=== PATIENT | male | born 1960 | race Caucasian/White ===

== ENCOUNTER 2023-04-23 16:37 | Inpatient (IN) | payer MEDICARE, SELFPAY ==
[2023-04-23] VITALS (8 sets, daily range): BP systolic 130–159; BP diastolic 72–89; PULSE 95–108; RESP 16–18; TEMP 37–38.9; O2SAT 92–99; BMI 31.0
--- NOTE | 2023-04-23 17:19 | XRR_ITS ---
PROCEDURE INFORMATION: Exam: XR Chest Exam date and time: 04/23/2023 7:06 PM Age: 63 years old Clinical indication: Shortness of breath; Additional info: SOB TECHNIQUE: Imaging protocol: Radiologic exam of the chest. Views: 1 view. COMPARISON: No relevant prior studies available. FINDINGS: Tubes, catheters and devices: Overlying monitor leads are seen. Lungs: Unremarkable. No consolidation. Pleural spaces: Unremarkable. No pleural effusion. No pneumothorax. Heart/Mediastinum: Unremarkable. No cardiomegaly. Bones/joints: Visualized osseous structures show no acute abnormality. XR/XR chest 1V portable [id number] IMPRESSION: Single-view chest is without acute cardiopulmonary abnormality.
--- NOTE | 2023-04-23 17:19 | CTR_ITS ---
PROCEDURE INFORMATION: Exam: CT Right Lower Extremity With Contrast, Foot Exam date and time: 04/23/2023 9:46 PM Age: 63 years old Clinical indication: Cellulitis and swelling, leg or foot; Right; Prior surgery; Surgery date: Post-operative (0-2 days); Surgery type: Incision and drainage perfomred to plantar presiding steward earlier today. Patient HX: Diffuse redness and swelling to RT foot. History of diabetes. Amputation scheduled for tomorrow. ; Additional info: Diabetic foot, ulcer, abscess TECHNIQUE: Imaging protocol: CT of the right lower extremity with intravenous contrast was performed. Exam focused on the foot. Radiation optimization: All CT scans at this facility use at least one of these dose optimization techniques: automated exposure control; mA and/or kV adjustment per patient size (includes targeted exams where dose is matched to clinical indication); or iterative reconstruction. Contrast material: OMNI 350; Contrast volume: 100 ml; Contrast route: INTRAVENOUS (IV); REPORTING DATA: Count of CT and Cardiac NM exams in prior 12 months: This patient has received 0 known CTs and 0 known cardiac nuclear medicine studies in the 12 months prior to the current study. COMPARISON: No relevant prior studies available. RADIATION DOSE METRICS: Total DLP (mGy-cm): 140.75 FINDINGS: Bones/joints: There are no fractures or dislocations noted. Soft tissues: There is diffuse soft tissue edema noted. There is extensive amount of air noted within the soft tissues suggestive of gas gangrene. There is a diffuse amount of air in the soft tissues both on the dorsum and the plantar surfaces. Other findings: There is presumed dressing below the great toe. CT/CT foot RT w con [id number] IMPRESSION: Extensive amount of air in the soft tissues indicative of gas gangrene. No fractures are noted.
[2023-04-23 17:27] LABS: Glucose Point of Care 343 mg/dL (70-110)
--- NOTE | 2023-04-23 17:28 | P.HP_ITS ---
Providers/Chief Complaint Admitting Physician: Artemio Joy MD Primary Care Provider: Carson Lopez Chief Complaint: hospitalization History of Present Illness Sebas Junior is a 63 year old male Review of Systems Const: Reports: fever(s) and chills Eyes: Denies: change in vision ENMT: Denies: throat pain Card: Denies: chest pain or palpitations Resp: Denies: dyspnea GI: Denies: abdominal pain or nausea : Denies: flank pain or difficulty urinating Musc: Denies: neck pain or back pain Skin/Breast: Reports: rash, pruritus and erythema Neuro: Denies: headache(s) Psych: Reports: anxiety Endo: Reports: polyuria and polydipsia Roshan/Lymph: Denies: easy bruising Medications/Allergies Allergies Allergy/AdvReac Type Severity Reaction Status Date / Time No Known Drug Allergies Allergy Unknown Unknown Verified 04/23/23 15:43 PFSH Acute PFSH: Medical History (Updated 04/23/23 @ 17:33 by Artemio Joy MD) History of anxiety History of diabetic neuropathy History of type 2 diabetes mellitus Surgical History (Updated 04/23/23 @ 17:30 by Artemio Joy MD) History of kidney surgery Family History (Updated 04/23/23 @ 17:31 by Artemio Joy MD) Mother CAD (coronary artery disease) Father Lung disease Social History (Updated 04/23/23 @ 17:31 by Artemio Joy MD) Smoking and tobacco status: current every day smoker Alcohol intake: current Alcohol intake frequency: holidays/special occasions only Substance/Drug Use: never Physical Exam Const: COMMON NORMALS: no acute distress and patient oriented x3 GENERAL APPEARANCE: cooperative, well kempt and well developed HENMT: COMMON NORMALS: normocephalic, Normal external nose present and oropharynx normal HEAD & SCALP: normocephalic FACE & SINUS: normal facial exam Eye: COMMON NORMALS: Equal, round and reactive pupils present, EOMs intact bi laterally, conjunctivae normal and no scleral icterus CONJUNCTIVA: Yes conjunctivae normal PUPIL: Yes Equal, round and reactive pupils present Neck/C-Spine: COMMON NORMALS: full ROM, no lymphadenopathy, no JVD, Thyroid normal and No carotid bruits THYROID: Thyroid normal Lymph: LYMPHATIC: no lymphadenopathy noted Chest: COMMONS NORMALS: normal inspection of the chest Resp: COMMON NORMALS: normal respiratory effort, No retractions, No use of accessory muscles and clear to auscultation bilaterally AUSCULTATION: clear to auscultation bilaterally Cardio: COMMON NORMALS: regular rate, regular rhythm, S1 normal heart sound present, S2 normal heart sound present, No murmurs present (Cardio) and Peripheral pulses 2+ throughout RATE: regular rate RHYTHM: regular rhythm HEART SOUNDS: S1 normal heart sound present and S2 normal heart sound present PERIPHERAL PULSES: Peripheral pulses 2+ throughout GI: COMMON NORMALS: Normal to inspection, nondistended, normoactive bowel sounds present, Soft to palpation and non-tender PALPATION: Yes Soft to palpation : COMMON NORMALS: Yes no CVA tenderness BLADDER/KIDNEY EXAM: Yes no CVA tenderness Back/Pelvis: COMMON NORMALS: no CVA tenderness Extremity: COMMON NORMALS: no calf tenderness NARRATIVE EXTREMITY EXAM: Right lower extremity swelling, erythema, on the entire right foot, extending up the right ankle, to the right mid ankle First digit, with diabetic ulcer, on the posterior surface, with bone present Second digit and third digit, with a bluish hue, Neuro: COMMON NORMALS: patient oriented x3, CN's II-XII intact bilaterally, moves all extremities, no focal motor deficits and no sensory deficits noted Psych: COMMON NORMALS: mental status grossly normal, Normal thought process present, cooperative and speech normal APPEARANCE: Yes well kempt SPEECH: Yes normal speech THOUGHT PROCESS: Normal thought process present Skin: COMMON NORMALS: turgor normal and no jaundice GENERAL SKIN EXAM: turgor normal A&P Assessment and plan (1) Diabetic ulcer of right foot: (2) Cellulitis of right foot: (3) Smoker: Plan Right foot diabetic ulcer, with cellulitis Plan -Consulted Dr. Smyth -Will keep n.p.o. over midnight for possible surgical intervention -Broad-spectrum antibiotic therapy vancomycin, Zosyn -CT right lower extremity -venous ultrasound for DVT -Pro-Shiv, CRP, ESR -Blood cultures -CBC, CMP, lactic acid, troponin series, chest x-ray -A1c, lipid panel, TSH -Low-dose sliding scale -Morphine for pain control -Venous ultrasound for DVT -Full code -Lovenox for DVT prophylaxis Spoke to patient, spoke to at bedside, spoke to nursing staff, spoke to Dr. Smyth, workup as above Attestations Medical Necessity Statement*: Patient requires hospitalization, inpatient, greater than 2 midnights, for right foot diabetic ulcer, cellulitis of right foot, Diagnoses Diabetic ulcer of right foot E11.621; L97.519 Cellulitis of right foot L03.115 Smoker F17.200
--- NOTE | 2023-04-23 17:32 | USCV_ITS ---
Sebas Junior Age: 63 Gender: M : 1960 Exam Date: 04/23/2023 20:09 Ordering Phys: Artemio Joy MD Technologist: [place]am Location[place] [facility] [place]ication: Bilateral LE edema R>L. No history of DVT per patient. open sores RT foot. possible gangrene. HISTORY: Bilateral LE edema R>L. No history of DVT per patient. open sores RT foot. possible gangrene. PROCEDURES: Venous duplex imaging was performed in bilateral lower extremities. The following venous structures were evaluated: common femoral vein, profunda vein, proximal portion of the greater saphenous vein, superficial femoral vein, and the popliteal vein. In addition, the posterior tibial and peroneal veins were evaluated. Serial compression, augmentation maneuvers, and spectral Doppler flow evaluation were performed, which were normal. Bilaterally, the common femoral, superficial femoral, profunda femoral, popliteal, posterior tibial, greater saphenous veins, and the peroneal veins were identified and interrogated in the standard fashion. These veins were found to be easily compressible with spontaneous blood flow. No evidence of thrombus noted. CONCLUSIONS No evidence of right lower extremity DVT. No evidence of left lower extremity DVT. Atif Hadley MD (Electronically Signed) Final Date: 24 April 2023 08:33 S
--- NOTE | 2023-04-23 17:40 | ECG_ITS ---
[facility] Test Date: 2023-04-23 Pat Name: Sebas Junior Department: Room: 254 Gender: Male Residence Director: : 1960 Requested By: Artemio Joy Order Number: [id number] Mackenzie MD: Wm Rodriges M.D. Measurements Intervals [place] Rate: 92 P: 59 HI: 155 QRS: 26 QRSD: 109 T: 71 QT: 355 QTc: 439 Interpretive Statements SINUS RHYTHM WITH SINUS ARRHYTHMIA NONSPECIFIC T-WAVE ABNORMALITY No previous ECG available for comparison Electronically Signed On 04-24-2023 9:29:52 CDT by Wm Rodriges M.D. [id number]
--- NOTE | 2023-04-23 18:34 | P.CONIM_ITS ---
Providers/Reason For Consult Consulting Physician/Specialty*: Dr. Dionisio Smyth, D.P.M./podiatry Reason for Consult*: Right foot diabetic foot infection Attending Physician: Artemio Joy MD Primary Care Provider: Carson Lopez History of Present Illness History of Present Illness Sebas Junior is a 63 year old male with history significant for type 2 diabetes who was direct admitted from wound care today 04/23/2023 for worsening right foot diabetic foot infection. In discussing with the patient the patient's the patient has a history of diabetic foot ulcers to bilateral lower extremities. The last time that the patient had a severe infection was to the left foot. It was managed by a physician in [place]. It has since healed. Patient's states that the wound has been present on his right foot for a matter of months. It has been worsening over the course of the past week. She encouraged him to go to his primary care provider which he was reluctant to do. As the infection worsened he was finally convinced to go to his primary care provider who referred him to wound care. Upon evaluation in wound care the patient was sent to [facility] for direct admission for worsening diabetic foot infection. Patient states that he has had feelings of general malaise over the course the past week. Patient states that after told to come to the hospital from wound care that he ate pizza rolls and hard candy. Podiatry was consulted to evaluate patient and provide further recommendations for treatment Review of Systems General: Reports: 10 or more systems reviewed and unremarkable except in HPI and below Const: Denies: fever(s), chills, body aches or change in appetite Eyes: Denies: change in vision or blurry vision Card: Denies: chest pain, palpitations or irregular heart rhythm Resp: Denies: dyspnea GI: Denies: abdominal pain, nausea, vomiting or diarrhea Musc: Reports: joint stiffness Skin/Breast: Reports: non-healing lesions and lesions Neuro: Reports: numbness in extremities Medications/Allergies Allergies Allergy/AdvReac Type Severity Reaction Status Date / Time No Known Drug Allergies Allergy Unknown Unknown Verified 04/23/23 15:43 PFSH Acute PFSH: Medical History (Updated 04/23/23 @ 18:47 by Dionisio Smyth DPM) History of anxiety History of diabetic neuropathy History of type 2 diabetes mellitus Surgical History (Updated 04/23/23 @ 17:30 by Artemio Joy MD) History of kidney surgery Family History (Updated 04/23/23 @ 17:31 by Artemio Joy MD) Mother CAD (coronary artery disease) Father Lung disease Social History (Updated 04/23/23 @ 17:31 by Artemio Joy MD) Smoking and tobacco status: current every day smoker Alcohol intake: current Alcohol intake frequency: holidays/special occasions only Substance/Drug Use: never Vitals/I&O/Wt Last Vital Signs Temp 98.6 F 04/23/23 17:24 Pulse 95 04/23/23 18:09 Resp 18 04/23/23 17:24 BP 144/75 04/23/23 17:24 Pulse Ox 93 04/23/23 18:09 O2 Del Method Room Air 04/23/23 18:09 Weight last 48 hrs Weight 229 lb Physical Exam Narrative: BELOW IS A FOCUSED LOWER EXTREMITY EXAM GENERAL: A&O x 3 VASCULAR: DP/PT pulses palpable 2/4 with CFT intact, <3seconds to distal digits DERMATOLOGICAL: Full-thickness ulceration to right first interdigital space with necrosis and active purulence, malodorous. Tracks proximally in the first inter metatarsal space. Plantar right foot shows area of fluctuance and abscess underlying. Erythema is retained to the midfoot. No proximal streaking up the leg. First, second and third digits are dusky in appearance. Discoloration to the lateral aspect of foot along fifth metatarsal neck likely due to underlying infection. Clinical images below. MUSCULOSKELETAL: Tenderness with palpation of right plantar foot NEUROLOGICAL: Neurological sensation to the affected foot and ankle is present through L4-S1 dermatomes with no hyper/hypoesthesias, negative Tinel or Valleix's sign A&P Assessment and plan (1) Diabetic ulcer of right foot: (2) Cellulitis of right foot: (3) History of type 2 diabetes mellitus: (4) Abscess of right foot: (5) Gangrene of right foot: Plan LABS AND CLINICAL INFO: Labs pending T98.6 HR 95 RR 18 ABx: Vanco/Zosyn Wound culture: Pending Blood culture: Pending CT scan: Pending PLAN: -N.p.o. at midnight for procedure tomorrow 04/24/2023. Plan for right t ransmetatarsal amputation -Lengthy discussion was had with patient patient's in regards to right foot infection and the severity of the infection. I discussed that intraoperatively we will determine the patient's prognosis. I discussed that the severity of the infection may ultimately lead to more proximal amputation. Patient and patient's verbalized understanding to this. -To stabilize right foot infection patient underwent bedside incision and drainage this evening (04/23/2023). See general procedure note for details. Cultures were obtained -Monitor and trend labs -Continue empiric antibiotic therapy until cultures result -Intraoperative findings will determine p.o. versus IV antibiotic therapy and the extent of home health care that patient will need -Discharge plan: To be determined -Podiatry will round on patient and continue to provide recommendations during this admission. Coding Level of Care Code Acute Code for [facility] Diagnoses Diabetic ulcer of right foot E11.621; L97.519 Cellulitis of right foot L03.115 History of type 2 diabetes mellitus Z86.39 Abscess of right foot L02.611 Gangrene of right foot I96
--- NOTE | 2023-04-23 18:50 | PM.ACPR ---
Procedure/Consent Consent: Consent for Procedure: Consent obtained from patient, Consent obtained from other (indicate) (Patient's signed for patient as patient is legally blind.), Emergency procedure, Risks & Benefits reviewed and Agrees to proceed with procedure Additional Consent Information: Patient was consented for right foot incision and drainage for deep space abscess Procedure Narrative: PROCEDURE: Right foot incision and drainage below fascia CPT 58341 Location: Plantar right foot and medial longitudinal arch Local Anesthesia: 6 cc of 1% lidocaine plain Consent: Both written and verbal consent were obtained for right foot incision and drainage Sterile Prep: Chlorhexidine prep Details: Attention was directed to the plantar aspect of the right foot where a #15 blade was used to incise through skin, subcutaneous tissue and superficial fascia. Incision was carried down to the level of fascia. Upon incising this area and extravasation of purulence was noted to be coming from the area. This was milked until no further purulence was expressed. Cultures were taken at this point and sent to micro for ID and sensitivity. The incision site was then irrigated copiously with Betadine infused saline. The wound on the lateral aspect of the hallux and the first interdigital space was also irrigated with copious amounts of Betadine infused saline. The foot was then expressed further no remaining purulence remained. The incision site was then dressed with Betadine soaked 4 x 4 gauze, the wound was also dressed with Betadine soaked 4 x 4 gauze. Followed by dry 4 x 4 gauze, ABD pad x 2 Kerlix and Enrique bandage. Hemostasis: Manual compression Irrigation: Betadine infused saline Dressing: Betadine soaked 4 x 4 gauze, dry 4 x 4 gauze, ABD pad x 2, Kerlix and Enrique bandage Estimated Blood Loss: Less than 5 cc Offloading: Nonweightbearing Wound culture both aerobic and anaerobic taken. Plan will be for transmetatarsal amputation of right foot tomorrow 04/24/2023. Today's bedside procedure was performed in an attempt to prevent more proximal spread of infection.
[2023-04-23] MEDS: pantoprazole 40 mg SDV IVP (19:08)
[2023-04-23] MEDS: gabapentin 300 mg Capsule PO (19:15)
[2023-04-23] MEDS: enoxaparin 40 mg/0.4 mL Syringe SUBCUT (19:15)
[2023-04-23] MEDS: sodium chloride 0.9% 1,000 ML 75 ML IV (19:16)
[2023-04-23 19:35] LABS: Erythrocyte Sedimentation Rate 36 mm/hr (0-10)
[2023-04-23 19:47] LABS: Bilirubin Urine Neg (Negative); Blood Urine 2+ (Negative); Glucose Urine UA 4+ (Normal); Ketones Urine 2+ (Negative); Nitrate Urine Negative (Negative); Protein Urine Neg (Negative); Urine Appearance Clear (CLEAR); Urine Color Yellow (Yellow); pH Urine 5 (5-7)
[2023-04-23 19:48] LABS: Add Urine Microscopic? YES; Leukocyte Esterase Urine Negative (Negative); RBC Urine 0-4 /hpf (0-2); Urobilinogen Urine 1 mg/dL (Negative); WBC Urine 0-4 /hpf (0-5)
[2023-04-23 19:49] LABS: Add Urine Culture? No; Bacteria Urine TRACE /hpf; Squamous Epithelial Cell Urine 0-4 /hpf (0-5)
[2023-04-23 19:53] LABS: Hematocrit 40.7 % (42.0-52.0); Hemoglobin 13.7 g/dL (11.7-16.6); Mean Corpuscular HGB Conc 33.7 g/dL (30.0-36.0); Mean Corpuscular Hemoglobin 30.1 pg (28.0-34.0); Mean Corpuscular Volume 89.5 fl (80-94); Mean Platelet Volume 9.9 fL (7.4-10.4); Platelet Count 281 10^3/cmm (130-400); Red Blood Count 4.55 10^6/uL (4.1-5.3); Red Cell Distribution Width 12.5 % (12.1-15.1)
[2023-04-23 19:55] LABS: Lactic Sepsis W/Reflex 1.8 mmol/L (0.5-2.2); Slide Review Slide Review Perform
[2023-04-23 20:05] LABS: Absolute Neutrophil 15.4 10^3/cmm (1.4-6.5); Absolute Segmented Neutrophil 12.4 10/cmm (1.6-7.1); Eosinophils 0 %; Lymphocytes 7 %; Lymphocytes Absolute 1.3 10^3/cmm (1.2-3.4); Monocytes Absolute 2.3 10^3/cmm (0.1-0.6); Platelet Estimate Normal (Normal); Segmented Neutrophils 65 %; Total Cells Counted 100 (0-100); Troponin(5th) Baseline 7 ng/L (0-15)
[2023-04-23 20:06] LABS: Dohle Bodies 1+; Toxic Granulation 2+
[2023-04-23 20:11] LABS: Estmated Average Glucose 306; Hemoglobin A1C 12.3 % (4.0-6.0)
[2023-04-23 20:12] LABS: Lipase 34 U/L (13-60); NT Pro B Type Natriuretic Pept 276 pg/mL (0-125); Procalcitonin 0.71 ng/mL (0-0.5); Thyroid Stimulating Hormone 1.64 uIU/mL (0.27-4.20)
[2023-04-23 20:23] LABS: Alanine Aminotransferase 13 U/L (0-41); Albumin Level 2.7 g/dL (3.5-5.2); Alkaline Phosphatase 135 U/L (40-130); Anion Gap 22.3 (5-19); Aspartate Amino Transferase 19 U/L (0-40); Blood Urea Nitrogen 14 mg/dL (8-23); Calcium 9.6 mg/dL (8.5-10.5); Carbon Dioxide 19 mmol/L (22-29); Chloride 93 mmol/L (98-107); Chol HDL Ratio 5.06 mg/dL (1.0-5.00); Cholesterol 91 mg/dL (0-200); Globulin 3.3 g/dL (1.3-4.6); Glomerular Filtration Rate 113.9 mL/min (90-130); Glucose 130 mg/dL (65-115); HDL Cholesterol 18 mg/dL (60-100); LDL Cholesterol Calculated 48 mg/dL (50-129); LDL HDL Ratio 2.67 RATIO (0.00-3.22); Magnesium 2.1 mg/dL (1.7-2.3); Osmolality Calculated 272 mOsm/kg (285-295); Phosphorus 2.9 mg/dL (2.5-4.5); Potassium 4.3 mmol/L (3.5-5.1); Sodium 130 mmol/L (136-145); Total Bilirubin 0.3 mg/dL (0.15-1.2); Triglycerides 126 mg/dL (0-150)
[2023-04-23 20:37] LABS: C Reactive Protein 498.8 mg/L (0.0-4.9)
[2023-04-23] MEDS: vancomycin 2,000 MG/400 ML PIGGYBACK 200 MG IV (20:42)
--- NOTE | 2023-04-23 21:04 | ECG_ITS ---
[facility] Test Date: 2023-04-23 Pat Name: Sebas Junior Department: Room: 254 Gender: Male Tie Worker: : 1960 Requested By: Artemio Joy Order Number: [id number] Mackenzie MD: Wm Rodriges M.D. Measurements Intervals [place] Rate: 106 P: 37 CO: 128 QRS: 36 QRSD: 110 T: 60 QT: 312 QTc: 415 Interpretive Statements SINUS TACHYCARDIA NONSPECIFIC ST & T-WAVE ABNORMALITY Compared to ECG 04/23/2023 17:40:16 Sinus rhythm no longer present Sinus arrhythmia no longer present T-wave abnormality still present Electronically Signed On 04-24-2023 9:25:37 CDT by Wm Rodriges M.D. [id number]
[2023-04-23 21:31] LABS: Troponin 5 2HR 8.65 ng/L (0-15); Troponin 5 2HR Delta 1.65 ABS# (0-10)
[2023-04-23] MEDS: iohexol 350 mg/mL 500 mL Btl (per mL) IV (21:45)
--- NOTE | 2023-04-23 22:45 | PC.PHAR ---
Pharmacokinetic dosing service Date: 04/23/23 Time: 2244 Objective: Patient: Sebas Junior Floor: 254-2 Age: 63 yo Serum creatinine: 0.7 mg/dL Height: 72.0 Inches Weight (kg): 103.873 Diagnosis: Relevant medical/social history: Cultures and sensitivities: Other labs: Assessment: IBW (kg): 77.60 Dosing wt(kg): 103.873 Estimated Creatinine clearance (ml/min): 118.6 CRCL method: Cockcroft and Gault using ibw(default). Drug selected: Vancomycin Loading dose (mg): 0 Vd (liters): 93.5 (factor used: 0.9 L/kg) Dorian (hr-1): 0.103 Half life (hrs): 6.73 Recommended dose: 1750 mg Interval: 8 hrs Infusion time (hrs): 1.5 Predicted peak (mcg/mL): 30.9 Predicted trough (mcg/mL): 15.82 Total body weight is being used for vancomycin dosing. Renal function is stable [ ] /unstable [ ] Recommendations: Give Vancomycin 1750 mg q 8 hrs with an expected Cpeak of 30.9 mcg/ml and an expected Ctrough of 15.82 mcg/ml Renal dosing of other antibiotics (review renal dosing of other medications and list guidelines here): Thank you for the consult, will continue to follow. Signature: [facility]
[2023-04-23] MEDS: piperacillin-tazobactam 3.375 GM in sodium chloride 0.9% (plus) 50 ML IV (23:20)
--- NOTE | 2023-04-23 23:22 | ECG_ITS ---
[facility] Test Date: 2023-04-23 Pat Name: Sebas Junior Department: Room: 254 Gender: Male Workers Compensation Claims Analyst: : 1960 Requested By: Artemio Joy Order Number: [id number] Mackenzie MD: Wm Rodriges M.D. Measurements Intervals [place] Rate: 104 P: 37 [place]: 132 QRS: 30 QRSD: 107 T: 30 QT: 323 QTc: 425 Interpretive Statements SINUS TACHYCARDIA NONSPECIFIC T-WAVE ABNORMALITY Compared to ECG 04/23/2023 21:04:27 No significant changes Electronically Signed On 04-24-2023 9:29:02 CDT by Wm Rodriges M.D. [id number]
[2023-04-23] MEDS: acetaminophen 325 mg Tablet 650 MG PO (23:54)
[2023-04-23] MEDS: morphine 4 mg/mL SDV 1 mL 2 MG IVP (23:55)
[2023-04-24] VITALS (17 sets, daily range): BP systolic 96–168; BP diastolic 53–84; PULSE 70–100; RESP 16–18; TEMP 36.2–37.9; O2SAT 91–100
[2023-04-24 00:58] LABS: Basophils # 0.1 10^3/uL (0.0-0.1); Basophils % 0.5 %; Eosinophils % 0.2 %; Hematocrit 40.4 % (42.0-52.0); Hemoglobin 13.5 g/dL (11.7-16.6); Lymphocytes # 1.4 10^3/uL (0.8-4.8); Lymphocytes % 7.1 %; Mean Corpuscular HGB Conc 33.4 g/dL (30.0-36.0); Mean Corpuscular Hemoglobin 29.1 pg (28.0-34.0); Mean Corpuscular Volume 87.1 fl (80-94); Mean Platelet Volume 9.6 fL (7.4-10.4); Monocytes # 1.9 10^3/uL (0.2-0.9); Monocytes % 10.1 %; Neutrophils # 15.43 10^3/uL (1.8-7.7); Neutrophils % 80.3 %; Nucleated Red Blood Cells % 0 %; Platelet Count 289 10^3/cmm (130-400); Red Blood Count 4.64 10^6/uL (4.1-5.3); Red Cell Distribution Width 12.5 % (12.1-15.1); White Blood Count 19.2 10^3/uL (4.0-10.0)
[2023-04-24 01:20] LABS: Troponin 5 6HR 17.46 ng/L (0-15)
[2023-04-24 01:21] LABS: Alanine Aminotransferase 14 U/L (0-41); Albumin Level 2.4 g/dL (3.5-5.2); Alkaline Phosphatase 116 U/L (40-130); Anion Gap 22.5 (5-19); Aspartate Amino Transferase 13 U/L (0-40); Blood Urea Nitrogen 13 mg/dL (8-23); Calcium 9.2 mg/dL (8.5-10.5); Carbon Dioxide 17 mmol/L (22-29); Chloride 94 mmol/L (98-107); Globulin 4.1 g/dL (1.3-4.6); Glomerular Filtration Rate 113.9 mL/min (90-130); Glucose 104 mg/dL (65-115); Magnesium 1.8 mg/dL (1.7-2.3); Osmolality Calculated 270 mOsm/kg (285-295); Phosphorus 2.7 mg/dL (2.5-4.5); Potassium 3.5 mmol/L (3.5-5.1); Sodium 130 mmol/L (136-145); Total Bilirubin 0.3 mg/dL (0.15-1.2); Total Protein 6.5 g/dL (6.6-8.7)
[2023-04-24 01:27] LABS: Procalcitonin 0.66 ng/mL (0-0.5)
[2023-04-24 01:28] LABS: Troponin 5 6HR Delta 10.46 ng/L (0-12)
[2023-04-24 01:35] LABS: C Reactive Protein 399.3 mg/L (0.0-4.9)
[2023-04-24 01:38] LABS: Slide Review Slide Review Perform
[2023-04-24] MEDS: vancomycin 1,750 MG/350 ML PIGGYBACK 233.33 MG IV ×2 (04:55→20:57)
[2023-04-24] MEDS: piperacillin-tazobactam 3.375 GM in sodium chloride 0.9% (plus) 50 ML IV ×3 (06:19→23:20)
[2023-04-24 06:48] LABS: Glucose Point of Care 237 mg/dL (70-110)
--- NOTE | 2023-04-24 07:39 | P.PN_ITS ---
Subjective Subjective: Patient seen at bedside this morning. Spiking fevers overnight. Endorses general malaise and constitutional symptoms Vitals/I&O/Wt Last Vital Signs Temp 98.7 F 04/24/23 04:10 Pulse 87 04/24/23 05:21 Resp 16 04/24/23 04:10 BP 130/73 04/24/23 04:10 Pulse Ox 94 04/24/23 04:10 O2 Del Method Room Air 04/24/23 04:10 04/23/23 04/24/23 04/24/23 22:59 06:59 14:59 Intake Total 800 / 800 Output Total 300 / 300 775 / 1075 Balance -300 / -300 25 / -275 Weight last 48 hrs Weight 229 lb Physical Exam Narrative: BELOW IS A FOCUSED LOWER EXTREMITY EXAM GENERAL: A&O x 3 VASCULAR: DP/PT pulses palpable 2/4 with CFT intact, <3seconds to distal digits DERMATOLOGICAL: Full-thickness ulceration to right first interdigital space with necrosis and active purulence, malodorous. Tracks proximally in the first intermetatarsal space. Plantar right foot shows area of fluctuance and abscess underlying. Erythema is retained to the midfoot. No proximal streaking up the leg. First, second and third digits are dusky in appearance. Discoloration to the lateral aspect of foot along fifth metatarsal neck likely due to underlying infection. Clinical images below. MUSCULOSKELETAL: Tenderness with palpation of right plantar foot NEUROLOGICAL: Neurological sensation to the affected foot and ankle is present through L4-S1 dermatomes with no hyper/hypoesthesias, negative Tinel or Valleix's sign IMAGING: CT scan obtained last night 04/23/2023 showed diffuse soft tissue edema and subcutaneous emphysema up to the level of the ankle mortise and moving proximally. Data 04/24/23 00:50 04/24/23 00:50 Micro: Microbiology 04/23/23 18:50 Blood Culture - Preliminary Blood SPECIMEN COLLECTED 04/23/23 19:05 Blood Culture - Preliminary Blood SPECIMEN COLLECTED A&P Assessment and plan (1) Gas gangrene: (2) Gangrene of right foot: (3) Diabetic ulcer of right foot: (4) Cellulitis of right foot: (5) History of type 2 diabetes mellitus: (6) Abscess of right foot: Plan LABS AND CLINICAL INFO: WBC 19.0--> 19.2 CRP 498--> 399 ESR 36 Tmax 102.1 HR 104 RR 18 ABx: Vanco/Zosyn Wound culture: Pending Blood culture: Pending CT scan: Subcutaneous emphysema extending from right hallux through the dorsal plantar tissues of the foot to the level of the ankle mortise PLAN: -N.p.o. diet -Extent of infection of right lower extremity necessitates more proximal amputation. Given finding of gas gangrene, guillotine amputation recommended for source control. Recommendation made to hospitalist for general surgery consult for guillotine amputation. I also spoke with general surgeon on-call about the case and the necessity for source control amputation. -I discussed with patient and patient's at bedside this morning in regards to extent of infection and the need for more proximal amputation. All questions were answered. Patient verbalized understanding to the gravity of the situation. -In an attempt to stabilize right foot infection patient underwent bedside incision and drainage (04/23/2023). See general procedure note for details. Cultures were obtained -Monitor and trend labs -Continue empiric antibiotic therapy until cultures result -Discharge plan: To be determined -Podiatry will round on patient and continue to provide recommendations during this admission. Attestations Medical Necessity Statement*: Right foot diabetic foot infection with gas gangrene requiring below the knee amputation Coding Level of Care Code Acute Code for [facility] Diagnoses Gas gangrene A48.0 Gangrene of right foot I96 Diabetic ulcer of right foot E11.621; L97.519 Cellulitis of right foot L03.115 History of type 2 diabetes mellitus Z86.39 Abscess of right foot L02.611
[2023-04-24] MEDS: morphine 4 mg/mL SDV 1 mL 2 MG IVP (08:10)
[2023-04-24] MEDS: gabapentin 300 mg Capsule PO ×2 (08:30→17:36)
[2023-04-24 11:19] LABS: Glucose Point of Care 433 mg/dL (70-110)
[2023-04-24] MEDS: insulin lispro 100 unit/1 mL SUBCUT (11:27)
[2023-04-24 12:36] LABS: Glucose Point of Care 259 mg/dL (70-110)
[2023-04-24] MEDS: sodium chloride 0.9% 1,000 ML 30 ML IV (12:43)
--- NOTE | 2023-04-24 12:55 | PC.NURSE ---
Nerve block- assisted Dr. Ruggiero with a nerve block. pt tolerated without difficulty.
[2023-04-24] MEDS: insulin regular-human 10 UNIT in SYRINGE 1 EACH IVP (13:00)
--- NOTE | 2023-04-24 13:01 | P.ANESASSM_ITS ---
Pre-Anesthetic Assessment Height/Weight: Height 1.83 m Weight 103.873 kg Temp Pulse Resp BP Pulse Ox O2 Del Method 100.3 F H 92 18 147/66 92 Room Air 04/24/23 12:18 04/24/23 12:18 04/24/23 12:18 04/24/23 12:18 04/24/23 12:18 04/24/23 12:18 Operation Date: 04/24/23 12:20 Proposed Procedures p Amputation Transmetatarsal(Right) - Dionisio Smyth DPM Operation Date: 04/24/23 13:00 Proposed Procedures p BKA (Below Knee Amputation)(Right) - Britton Dave DO Familial anesthetic complications: None Was Beta Cherrie taken within 24 hours: N/A Was Clonidine taken within 24 hours: N/A Last intake: Intake Last Liquid Date 04/23/23 Last Liquid Time 12:00 Last Solid Date 04/23/23 Last Solid Time 12:00 Social No alcohol and No tobacco Exam alert, oriented x 3, clear to auscultation bilaterally and regular rate & rhythm Airway Mallampati: Class II Dentition: full Pulmonary None reported Metabolic Diabetes Mellitus Anesthetic Plan ASA status: 3 Anesthesia: General Risk of > 500 ml blood loss (7ml/kg in children): No Medications/Allergies Home Medications Medication Instructions Recorded Confirmed Last Taken Type cephalexin 500 mg capsule 500 mg PO Q8H 04/24/23 04/24/23 Unknown History empagliflozin 25 mg tablet 25 mg PO DAILY 04/24/23 04/24/23 Unknown History (Jardiance) mupirocin 2 % topical ointment 1 applic topical BID 04/24/23 04/24/23 Unknown History sulfamethoxazole 800 1 tab PO BID 04/24/23 04/24/23 Unknown History mg-trimethoprim 160 mg tablet tramadol 50 mg tablet 50 mg PO Q6H PRN Pain 04/24/23 04/24/23 Unknown History Allergies Allergy/AdvReac Type Severity Reaction Status Date / Time No Known Drug Allergies Allergy Unknown Unknown Verified 04/23/23 15:43 Current Medications Generic Name Dose Route Start Last Admin Trade Name Freq PRN Reason Stop Dose Admin Acetaminophen 650 mg 04/23/23 17:23 04/23/23 23:54 Acetaminophen 325 Mg Tablet PO 650 mg Q6H PRN Administration Mild/Mod Pain Or Temp >/= 101 Enoxaparin Sodium 40 mg 04/23/23 17:30 04/23/23 19:15 Enoxaparin 40 Mg/0.4 Ml Syringe SUBCUT 40 mg Q24H MILI Administration Gabapentin 300 mg 04/23/23 18:00 04/24/23 08:30 Gabapentin 300 Mg Capsule PO 300 mg BID MILI Administration Sodium Chloride 1,000 mls @ 75 mls/hr 04/23/23 17:30 04/23/23 19:16 Sodium Chloride 0.9% IV 75 mls/hr .[id number] MILI Administration Piperacillin Sod/Tazobactam 50 mls @ 12.5 mls/hr 04/23/23 22:00 04/24/23 06:19 Sod 3.375 gm/ Sodium Chloride IV 12.5 mls/hr Q8H MILI Administration Protocol Vancomycin/PEG/NADA/Lysine/Water 1,750 mg in 350 mls @ 233.333 mls/hr 04/24/23 05:00 04/24/23 06:23 Vancocin IV Infused Q8H MILI Infusion Sodium Chloride 1,000 mls @ 30 mls/hr 04/24/23 12:30 04/24/23 12:43 Sodium Chloride 0.9% IV 04/25/23 12:29 30 mls/hr .Q24H MILI Administration Insulin Human Lispro 0 unit 04/23/23 18:00 04/24/23 11:27 Insulin Lispro 100 Unit/1 Ml SUBCUT 14 unit TIDWM MILI Administration Protocol Morphine Sulfate 2 mg 04/23/23 17:23 04/24/23 08:10 Morphine 4 Mg/Ml Sdv 1 Ml IVP 2 mg Q4H PRN Administration SEVERE PAIN Pantoprazole Sodium 40 mg 04/23/23 17:30 04/23/23 19:08 Pantoprazole 40 Mg Sdv IVP 40 mg Q24H MILI Administration PFSH Anesthesia Medical History (Updated 04/24/23 @ 07:48 by Dionisio Smyth DPM) History of anxiety History of diabetic neuropathy History of type 2 diabetes mellitus Surgical History (Updated 04/23/23 @ 17:30 by Artemio Joy MD) History of kidney surgery Family History (Updated 04/23/23 @ 17:31 by Artemio Joy MD) Mother CAD (coronary artery disease) Father Lung disease Social History (Updated 04/23/23 @ 17:31 by Artemio Joy MD) Smoking and tobacco status: current every day smoker Alcohol intake: current Alcohol intake frequency: holidays/special occasions only Substance/Drug Use: never Data Anesthesia 04/24/23 00:50 04/24/23 00:50 Short CBC 04/23/23 04/24/23 Range/Units 18:50 00:50 WBC 19.0 H 19.2 H (4.0-10.0) 10^3/uL Hgb 13.7 13.5 (11.7-16.6) g/dL Hct 40.7 L 40.4 L (42.0-52.0) % MCV 89.5 87.1 (80-94) fl Plt Count 281 289 (130-400) 10^3/cmm Neut % (Auto) 80.3 % Neut # (Auto) 15.43 H (1.8-7.7) 10^3/uL BMP 04/23/23 04/24/23 18:50 00:50 Sodium 130 L 130 L Potassium 4.3 3.5 Chloride 93 L 94 L Carbon Dioxide 19 L 17 L BUN 14 13 Creatinine 0.7 0.7 Glucose 130 H 104 Calcium 9.6 9.2 Cardiac Enzymes 04/23/23 04/23/23 04/23/23 Range/Units 18:50 18:50 20:56 Troponin T Baseline 7 (0-15) ng/L Troponin T 120 Minute 8.65 (0-15) ng/L Delta Troponin T 1.65 (0-10) ABS# Troponin T Hi Sens 6Hr (0-15) ng/L Troponin T Hi Sens 6Hr Delta (0-12) ng/L NT-Pro-B Natriuret Pep 276 H (0-125) pg/mL 04/24/23 Range/Units 00:50 Troponin T Baseline (0-15) ng/L Troponin T 120 Minute (0-15) ng/L Delta Troponin T (0-10) ABS# Troponin T Hi Sens 6Hr 17.46 H (0-15) ng/L Troponin T Hi Sens 6Hr Delta 10.46 (0-12) ng/L NT-Pro-B Natriuret Pep (0-125) pg/mL Liver Function 04/23/23 04/24/23 Range/Units 18:50 00:50 Total Bilirubin 0.3 0.3 (0.15-1.2) mg/dL AST 19 13 (0-40) U/L ALT 13 14 (0-41) U/L Alkaline Phosphatase 135 H 116 (40-130) U/L Albumin 2.7 L 2.4 L (3.5-5.2) g/dL Urine 04/23/23 Range/Units 18:42 Urine Color Yellow (Yellow) Urine Appearance Clear (CLEAR) Urine pH 5 (5-7) Ur Specific [place] 1.010 (1.005-1.030) Urine Protein Neg (Negative) Urine Glucose (UA) 4+ H (Normal) Urine Ketones 2+ H (Negative) Urine Nitrate Negative (Negative) Urine Bilirubin Neg (Negative) Ur Leukocyte Esterase Negative (Negative) Urine RBC 0-4 H (0-2) /hpf Urine WBC 0-4 H (0-5) /hpf Coags 04/23/23 04/23/23 04/24/23 18:50 18:50 00:50 ESR 36 H C-Reactive Protein 498.8 H 399.3 H Microbiology 04/23/23 18:50 Blood Culture - Preliminary Blood SPECIMEN COLLECTED 04/23/23 19:05 Blood Culture - Preliminary Blood SPECIMEN COLLECTED Cardiac Studies: No Data to Display
--- NOTE | 2023-04-24 13:03 | ANES.PROC ---
Anesthesia Procedures Procedure/Date: 04/24/23 Nerve Block ^: Nerve Block 1: Main Anesthesia: general anesthesia Time Out Performed: Yes Consent: requested by attending/covering physician, from patient, from other, risks and benefits reviewed and patient agrees to proceed Nerve block location: popliteal (R) Anesthesia monitors applied: pulse oximetry, EKG, BP cuff and oxygen Nerve block position: supine Anesthetic Used: ropivicaine 0.5% (30 ml) and with decadron ( 4m g) Ultrasound used to: recognize landmarks Nerve Stimulator Used?: No Interscalene/Femoral BLK: 4 stimuplex 21 g needle used for position and inplane approach, visualize local anesthetic spread and no vascular puncture identified Injection: neg aspiration of heme Patient Tolerated Procedure: well and no complications Complications: none
--- NOTE | 2023-04-24 13:33 | PC.NURSE ---
glucose - 73 at 1330
[2023-04-24 13:35] LABS: Glucose Point of Care 73 mg/dL (70-110)
--- NOTE | 2023-04-24 14:51 | PM.CONSULT ---
Providers/Reason For Consult Consulting Physician/Specialty*: Dr. Britton Dave, DO/General surgery Reason for Consult*: Gas gangrene of right foot and ankle Attending Physician: Artemio Joy MD Primary Care Provider: Cora Bass APN History of Present Illness History of Present Illness Sebas Junior is a 63 year old male who presented to wound care yesterday with ongoing diabetic foot ulcers of the right foot. They appear to be worsening and he was sent to the hospital. Podiatry saw the patient and a CT was performed this morning. He is found to have gas gangrene of the right foot and ankle. General surgery was consulted for a right guillotine below-knee amputation. He is currently on vancomycin and Zosyn. He had a nerve block to his right lower extremity and is not experiencing any pain at this moment. Review of Systems General: Reports: 10 or more systems reviewed and unremarkable except in HPI and below Medications/Allergies Home Medications Medication Instructions Recorded Confirmed Last Taken Type cephalexin 500 mg capsule 500 mg PO Q8H 04/24/23 04/24/23 Unknown History empagliflozin 25 mg tablet 25 mg PO DAILY 04/24/23 04/24/23 Unknown History (Jardiance) mupirocin 2 % topical ointment 1 applic topical BID 04/24/23 04/24/23 Unknown History sulfamethoxazole 800 1 tab PO BID 04/24/23 04/24/23 Unknown History mg-trimethoprim 160 mg tablet tramadol 50 mg tablet 50 mg PO Q6H PRN Pain 04/24/23 04/24/23 Unknown History Allergies Allergy/AdvReac Type Severity Reaction Status Date / Time No Known Drug Allergies Allergy Unknown Unknown Verified 04/23/23 15:43 Current Medications Generic Name Dose Route Start Last Admin Trade Name Freq PRN Reason Stop Dose Admin Acetaminophen 650 mg 04/23/23 17:23 04/23/23 23:54 Acetaminophen 325 Mg Tablet PO 650 mg Q6H PRN Administration Mild/Mod Pain Or Temp >/= 101 Enoxaparin Sodium 40 mg 04/23/23 17:30 04/23/23 19:15 Enoxaparin 40 Mg/0.4 Ml Syringe SUBCUT 40 mg Q24H MILI Administration Gabapentin 300 mg 04/23/23 18:00 04/24/23 08:30 Gabapentin 300 Mg Capsule PO 300 mg BID MILI Administration Sodium Chloride 1,000 mls @ 75 mls/hr 04/23/23 17:30 04/23/23 19:16 Sodium Chloride 0.9% IV 75 mls/hr .[id number] MILI Administration Piperacillin Sod/Tazobactam 50 mls @ 12.5 mls/hr 04/23/23 22:00 04/24/23 06:19 Sod 3.375 gm/ Sodium Chloride IV 12.5 mls/hr Q8H MILI Administration Protocol Vancomycin/PEG/NADA/Lysine/Water 1,750 mg in 350 mls @ 233.333 mls/hr 04/24/23 05:00 04/24/23 06:23 Vancocin IV Infused Q8H MILI Infusion Sodium Chloride 1,000 mls @ 30 mls/hr 04/24/23 12:30 04/24/23 12:43 Sodium Chloride 0.9% IV 04/25/23 12:29 30 mls/hr .Q24H MILI Administration Insulin Human Lispro 0 unit 04/23/23 18:00 04/24/23 11:27 Insulin Lispro 100 Unit/1 Ml SUBCUT 14 unit TIDWM MILI Administration Protocol Morphine Sulfate 2 mg 04/23/23 17:23 04/24/23 08:10 Morphine 4 Mg/Ml Sdv 1 Ml IVP 2 mg Q4H PRN Administration SEVERE PAIN Pantoprazole Sodium 40 mg 04/23/23 17:30 04/23/23 19:08 Pantoprazole 40 Mg Sdv IVP 40 mg Q24H MILI Administration PFSH Acute PFSH: Medical History History of anxiety History of diabetic neuropathy History of type 2 diabetes mellitus Surgical History History of kidney surgery Family History Mother CAD (coronary artery disease) Father Lung disease Social History Smoking and tobacco status: current every day smoker Alcohol intake: current Alcohol intake frequency: holidays/special occasions only Substance/Drug Use: never Vitals/I&O/Wt Last Vital Signs Temp 100.3 F H 04/24/23 12:18 Pulse 92 04/24/23 12:18 Resp 18 04/24/23 12:18 BP 147/66 04/24/23 12:18 Pulse Ox 92 04/24/23 12:18 O2 Del Method Room Air 04/24/23 12:18 04/23/23 04/24/23 04/24/23 22:59 06:59 14:59 Intake Total 800 / 800 Output Total 300 / 300 775 / 1075 450 / 450 Balance -300 / -300 25 / -275 -450 / -450 Weight last 48 hrs Weight 229 lb Physical Exam Narrative: General : Patient is well developed , no acute distress, oriented x3 Head : Normal cephalic, a-traumatic. Ears : Pinnae and external canal are normal. Hearing is normal. Eyes : PERRLA, Sclera and injection are normal. No conjunctival discharge. Nose : Mucous membranes are without erythema. Throat : buccal mucosa is normal, gums are without significant recession or hypertrophy. Lungs : Equal chest rise bilaterally, no use of accessory muscles, trachea is midline. Cor : Rate and rhythm are normal. Abdomen : Soft, ND, NT, no g/r/m Extremities : There is edema to the right leg compared to left. Bandages on the right foot. Back : non-tender to palpation, no CVA tenderness. Data 04/24/23 00:50 04/24/23 00:50 Micro: Microbiology 04/23/23 18:42 MRSA Culture - Final Nose 04/23/23 18:50 Blood Culture - Preliminary Blood SPECIMEN COLLECTED 04/23/23 19:05 Blood Culture - Preliminary Blood SPECIMEN COLLECTED A&P Assessment and plan (1) Gangrene of right foot: Plan Right guillotine below-knee amputation The risks and benefits of procedure, including but not limited to, scar, numbness, pain, ongoing infection, need for further surgery, , bleeding, paresthesias, phantom limb syndrome, were explained to the patient. He is understanding the risks and wishes to proceed. Plan is to convert the guillotine below-knee amputation to a formal below-knee amputation in a few days Coding Level of Care Code 37822 Diagnoses Gangrene of right foot I96
--- NOTE | 2023-04-24 14:54 | PC.NURSE ---
Dr. Dave - here and talked to patient. Consent form signed.
--- NOTE | 2023-04-24 16:11 | SUR.OPER ---
Right upper thigh tourniquet applied by Ruy Sinclair RN, webril padding used. Inflated at 1540, pressure 250, deflated at 1544, skin noted to be warm after tourniquet was removed.
--- NOTE | 2023-04-24 16:26 | P.OP_ITS ---
Operative Report Date of procedure: April 24, 2023 Pre-op diagnosis: Gas gangrene of right foot and ankle Post-op diagnosis: same Procedure done: Guillotine right below-knee amputation Implants: None Specimens removed/disposition: Right foot and ankle Surgeon: Dr. Britton Dave, DO Anesthesia: General Complications: None apparent Brief History: This very pleasant 63-year-old gentleman was found to have gas gangrene of his right foot and ankle. Guillotine right below-knee amputation was indicated. The risk and benefits were explained and documented. Procedure: Patient was wheeled in operative room placed on the OR table in supine position. The right lower extremity was inspected prepped and draped in usual sterile fashion. General tracheal intubation was achieved by department anesthesia. A timeout was performed. All present were in agreement. A tourniquet was then raised to 125 mmHg proximally. A 10 blade scalpel was then used to make a circumferential incision down to bone just proximal to the ankle. A battery- powered saw was then used to cut through the distal fibula and tibia. An amputation knife was then used to cut through the muscle and the foot and ankle were passed off. Veins and arteries were then identified and tied off with 3-0 silk suture. The tourniquet was let down spot bleeding was controlled with electrocautery. A large padded sterile dressing was applied. Patient tolerated procedure well.
--- NOTE | 2023-04-24 16:30 | ANE.PACU2 ---
Inpatient post-anesthesia follow up: Airway intact: Yes Vital signs: Temperature 97.4 F Pulse Rate 83 Respiratory Rate 17 Blood Pressure 117/74 Pulse Oximetry 98 Oxygen Delivery Me thod [ Room Air Current Rate & Del konstantin] Oxygen Delivery Me thod Room Air Oxygen Flow Rate 6 Fraction of Inspir ed Oxygen Hydration adequate: Yes Nausea and vomiting: No Pain level: 1 Mental status: Baseline
[2023-04-24 16:50] LABS: Glucose Point of Care 132 mg/dL (70-110)
[2023-04-24] MEDS: pantoprazole 40 mg SDV IVP (17:35)
[2023-04-24] MEDS: enoxaparin 40 mg/0.4 mL Syringe SUBCUT (17:35)
--- NOTE | 2023-04-24 18:08 | P.PN_ITS ---
Subjective Subjective: ExtensivePatient was seen this morning, discussion about his CT scan findings, the gangrene of his right foot, evidence of here in the soft tissue indicated of gas gangrene, he spoke to Dr. Smyth, he is agreeable to a amputation, I spoke to Dr. Smyth, Dr. Dave has been consulted, continue antibiotics await surgery's recommendations Vitals/I&O/Wt Last Vital Signs Temp 97.5 F L 04/24/23 17:20 Pulse 79 04/24/23 17:20 Resp 16 04/24/23 17:20 BP 104/57 04/24/23 17:20 Pulse Ox 93 04/24/23 17:20 O2 Del Method Room Air 04/24/23 17:20 O2 Flow Rate 6 04/24/23 16:09 04/24/23 04/24/23 04/24/23 06:59 14:59 22:59 Intake Total 800 / 800 480 / 480 Output Total 775 / 1075 450 / 450 50 / 500 Balance 25 / -275 -450 / -450 430 / -20 Weight last 48 hrs Weight 103.873 kg Physical Exam Const: COMMON NORMALS: no acute distress and patient oriented x3 Resp: COMMON NORMALS: normal respiratory effort, No retractions, No use of accessory muscles and clear to auscultation bilaterally AUSCULTATION: clear to auscultation bilaterally Cardio: COMMON NORMALS: regular rate, regular rhythm, S1 normal heart sound present and S2 normal heart sound present RATE: regular rate RHYTHM: reg ular rhythm HEART SOUNDS: S1 normal heart sound present and S2 normal heart sound present GI: COMMON NORMALS: Normal to inspection, nondistended, normoactive bowel sounds present and non-tender Extremity: COMMON NORMALS: no pedal edema NARRATIVE EXTREMITY EXAM: Right lower extremity, erythema, swelling, extending from distal phalanges up to and above ankle Neuro: COMMON NORMALS: patient oriented x3 Psych: COMMON NORMALS: mental status grossly normal Data 04/24/23 00:50 04/24/23 00:50 Micro: Microbiology 04/23/23 18:42 MRSA Culture - Final Nose 04/23/23 18:50 Blood Culture - Preliminary Blood SPECIMEN COLLECTED 04/23/23 19:05 Blood Culture - Preliminary Blood SPECIMEN COLLECTED A&P Assessment and plan (1) Diabetic ulcer of right foot: (2) Cellulitis of right foot: (3) Smoker: (4) Gas gangrene: (5) Gangrene of right foot: (6) Abscess of right foot: Plan Right foot diabetic ulcer, with cellulitis, with right foot gas gangrene Plan -Consulted Dr. Smyth, recommended amputation -Dr. Dave consulted, -Broad-spectrum antibiotic therapy vancomycin, Zosyn -venous ultrasound for DVT negative -Pro-Shiv, CRP, ESR -Blood cultures -Low-dose sliding scale for type 2 diabetes mellitus -Morphine for pain control -Full code -Lovenox for DVT prophylaxis Spoke to patient, spoke to at bedside, spoke to nursing staff, spoke to Dr. Smyth, Dr. Dave consulted for surgical intervention likely amputation Attestations Medical Necessity Statement*: Patient requires hospitalization for right foot diabetic ulcers, with cellulitis with right foot gas gangrene Diagnoses Diabetic ulcer of right foot E11.621; L97.519 Cellulitis of right foot L03.115 Smoker F17.200 Gas gangrene A48.0 Gangrene of right foot I96 Abscess of right foot L02.611
[2023-04-24 18:35] LABS: Glucose Point of Care 227 mg/dL (70-110)
[2023-04-24 20:47] LABS: Glucose Point of Care 256 mg/dL (70-110)
[2023-04-24] MEDS: acetaminophen 325 mg Tablet 650 MG PO (22:38)
[2023-04-25] VITALS (7 sets, daily range): BP systolic 109–131; BP diastolic 70–80; PULSE 67–83; RESP 15–19; TEMP 36.3–36.9; O2SAT 96–98
[2023-04-25] MEDS: vancomycin 1,750 MG/350 ML PIGGYBACK 233 MG IV ×2 (04:55→13:26)
[2023-04-25] MEDS: oxyCODONE-APAP 10-325 mg Tablet 1 TAB PO (05:00)
[2023-04-25 05:52] LABS: Hematocrit 45.3 % (42.0-52.0); Hemoglobin 14.5 g/dL (11.7-16.6); Mean Corpuscular Hemoglobin 29.6 pg (28.0-34.0); Mean Corpuscular Volume 92.4 fl (80-94); Mean Platelet Volume 10.1 fL (7.4-10.4); Platelet Count 432 10^3/cmm (130-400)
[2023-04-25 06:20] LABS: Anion Gap 27.9 (5-19); Blood Urea Nitrogen 28 mg/dL (8-23); Calcium 8.9 mg/dL (8.5-10.5); Carbon Dioxide 11 mmol/L (22-29); Chloride 103 mmol/L (98-107); Creatinine Clr Calc Pharmacy 117.7849; Glomerular Filtration Rate 97.6 mL/min (90-130); Glucose 194 mg/dL (65-115); Osmolality Calculated 295 mOsm/kg (285-295); Potassium 4.9 mmol/L (3.5-5.1); Sodium 137 mmol/L (136-145)
[2023-04-25 06:22] LABS: Procalcitonin 0.63 ng/mL (0-0.5)
[2023-04-25 06:25] LABS: Magnesium 2.3 mg/dL (1.7-2.3)
[2023-04-25] MEDS: piperacillin-tazobactam 3.375 GM in sodium chloride 0.9% (plus) 50 ML IV ×3 (06:40→22:08)
[2023-04-25 06:45] LABS: Glucose Point of Care 202 mg/dL (70-110)
[2023-04-25 06:55] LABS: Slide Review Slide Review Perform
[2023-04-25 07:04] LABS: Band Neutrophils Absolute 3.1 10^3/cmm (0.0-1.2); Lymphocytes 7 %; Monocytes Absolute 0.2 10^3/cmm (0.1-0.6); Segmented Neutrophils 75 %; Total Cells Counted 100 (0-100)
[2023-04-25 07:05] LABS: Absolute Neutrophil 21.1 10^3/cmm (1.4-6.5); C Reactive Protein 381.4 mg/L (0.0-4.9); Eosinophils 0 %; Giant Platelets Trace; Lymphocytes Absolute 1.7 10^3/cmm (1.2-3.4); Platelet Estimate Normal (Normal)
[2023-04-25] MEDS: insulin lispro 100 unit/1 mL SUBCUT ×3 (07:34→17:16)
[2023-04-25] MEDS: sodium chloride 0.9% 1,000 ML 75 ML IV (07:35)
[2023-04-25] MEDS: gabapentin 300 mg Capsule PO ×2 (07:46→17:16)
--- NOTE | 2023-04-25 08:52 | PM.PN ---
Subjective Subjective: Patient seen and examined. Pain is controlled. Bandemia is improving Vitals/I&O/Wt Last Vital Signs Temp 97.4 F L 04/25/23 07:43 Pulse 83 04/25/23 07:43 Resp 17 04/25/23 07:43 BP 117/74 04/25/23 07:43 Pulse Ox 98 04/25/23 07:43 O2 Del Method Room Air 04/25/23 07:43 O2 Flow Rate 6 04/25/23 07:52 04/24/23 04/25/23 04/25/23 22:59 06:59 14:59 Intake Total 1205.1 / 1205.1 818.75 / 2023.85 548.75 / 548.75 Output Total 650 / 1100 300 / 1400 Balance 555.1 / 105.1 518.75 / 623.85 548.75 / 548.75 Weight last 48 hrs Weight 229 lb Physical Exam Narrative: General: No acute distress, awake alert and oriented x3 Extremities: Right lower extremity less edematous with no visible cellulitis Data 04/25/23 04:32 04/25/23 04:32 Micro: Microbiology 04/23/23 18:25 Gram Stain - Final Toe - Right Wound Culture - Preliminary Gram Negative Rods 04/23/23 19:05 Blood Culture - Preliminary Blood NEGATIVE TO DATE 04/23/23 18:50 Blood Culture - Preliminary Blood NEGATIVE TO DATE 04/23/23 18:42 MRSA Culture - Final Nose A&P Assessment and plan (1) Gangrene of right foot: Plan S/P Right guillotine below-knee amputation Keep dressing on right lower extremity until revision Plan is to convert the guillotine below-knee amputation to a formal below-knee amputation on Thursday Medical management per primary Attestations Medical Necessity Statement*: Per primary Coding Level of Care Code 05375 Diagnoses Gangrene of right foot I96
--- NOTE | 2023-04-25 09:11 | PM.PN ---
Subjective Subjective: Patient seen at bedside this morning. Patient is status post right lower extremity guillotine amputation with plan for formal below the knee amputation on 04/27/2023 by general surgery. Patient states that pain is well controlled. Vitals/I&O/Wt Last Vital Signs Temp 97.4 F L 04/25/23 07:43 Pulse 83 04/25/23 07:43 Resp 17 04/25/23 07:43 BP 117/74 04/25/23 07:43 Pulse Ox 98 04/25/23 07:43 O2 Del Method Room Air 04/25/23 07:43 O2 Flow Rate 6 04/25/23 07:52 04/24/23 04/25/23 04/25/23 22:59 06:59 14:59 Intake Total 1205.1 / 1205.1 818.75 / 2023.85 548.75 / 548.75 Output Total 650 / 1100 300 / 1400 Balance 555.1 / 105.1 518.75 / 623.85 548.75 / 548.75 Weight last 48 hrs Weight 229 lb Physical Exam Narrative: BELOW IS A FOCUSED LOWER EXTREMITY EXAM DERMATOLOGICAL: Surgical dressing clean, dry, intact with no strikethrough noted. MUSCULOSKELETAL: Status post right foot guillotine amputation IMAGING: CT scan obtained last night 04/23/2023 showed diffuse soft tissue edema and subcutaneous emphysema up to the level of the ankle mortise and moving proximally. Data 04/25/23 04:32 04/25/23 04:32 Micro: Microbiology 04/23/23 18:25 Gram Stain - Final Toe - Right Wound Culture - Preliminary Gram Negative Rods 04/23/23 19:05 Blood Culture - Preliminary Blood NEGATIVE TO DATE 04/23/23 18:50 Blood Culture - Preliminary Blood NEGATIVE TO DATE 04/23/23 18:42 MRSA Culture - Final Nose A&P Assessment and plan (1) Gas gangrene: (2) Gangrene of right foot: (3) Diabetic ulcer of right foot: (4) Cellulitis of right foot: (5) History of type 2 diabetes mellitus: (6) Abscess of right foot: Plan LABS AND CLINICAL INFO: WBC 24.0 VSS ABx: Vanco/Zosyn Wound culture: GNR's preliminary Blood culture: NGTD Status post right lower extremity guillotine amputation PLAN: -Status post right foot guillotine amputation. Plan for formal below-knee amputation of right lower extremity with general surgery on 04/27/2023 -As patient is status post right foot guillotine amputation, defer to general surgery and hospitalist for further recommendations moving forward -Discharge plan: To be determined. Recommend patient follow-up with podiatry in the outpatient setting for left foot to prevent further infection and wound development. -Podiatry will sign off. Please reconsult if needed. Attestations Medical Necessity Statement*: Per primary Coding Level of Care Code Acute Code for Chg Fwd Diagnoses Gas gangrene A48.0 Gangrene of right foot I96 Diabetic ulcer of right foot E11.621; L97.519 Cellulitis of right foot L03.115 History of type 2 diabetes mellitus Z86.39 Abscess of right foot L02.611
[2023-04-25 11:55] LABS: Glucose Point of Care 306 mg/dL (70-110)
[2023-04-25 16:08] LABS: Glucose Point of Care 403 mg/dL (70-110)
--- NOTE | 2023-04-25 16:26 | PM.PN ---
Subjective Subjective: Patient was seen this morning, status post right lower extremity guillotine amputation, denies any fevers, no chills, no nausea, vomiting, he is quite withdrawn, poor eye contact, Vitals/I&O/Wt Last Vital Signs Temp 98 F 04/25/23 16:00 Pulse 67 04/25/23 16:00 Resp 19 H 04/25/23 16:00 BP 122/80 04/25/23 16:00 Pulse Ox 97 04/25/23 16:00 O2 Del Method Room Air 04/25/23 16:00 O2 Flow Rate 6 04/25/23 07:52 04/25/23 04/25/23 04/25/23 06:59 14:59 22:59 Intake Total 818.75 / 2023.85 1078.75 / 1078.75 Output Total 300 / 1400 900 / 900 Balance 518.75 / 623.85 178.75 / 178.75 Weight last 48 hrs Weight 103.873 kg Physical Exam Const: COMMON NORMALS: no acute distress and patient oriented x3 HENMT: COMMON NORMALS: normocephalic HEAD & SCALP: normocephalic Resp: COMMON NORMALS: normal respiratory effort, No retractions, No use of accessory muscles and clear to auscultation bilaterally AUSCULTATION: clear to auscultation bilaterally Cardio: COMMON NORMALS: regular rate, regular rhythm, S1 normal heart sound present and S2 normal heart sound present RATE: regular rate RHYTHM: regular rhythm HEART SOUNDS: S1 normal heart sound present and S2 normal heart sound present GI: COMMON NORMALS: Normal to inspection, nondistended, normoactive bowel sounds present and non-tender Extremity: NARRATIVE EXTREMITY EXAM: Right lower extremity wrapped Neuro: COMMON NORMALS: patient oriented x3 Psych: COMMON NORMALS: mental status grossly normal Data 04/25/23 04:32 04/25/23 04:32 Micro: Microbiology 04/23/23 18:25 Gram Stain - Final Toe - Right Wound Culture - Preliminary Gram Negative Rods 04/23/23 19:05 Blood Culture - Preliminary Blood NEGATIVE TO DATE 04/23/23 18:50 Blood Culture - Preliminary Blood NEGATIVE TO DATE 04/23/23 18:42 MRSA Culture - Final Nose A&P Assessment and plan (1) Diabetic ulcer of right foot: (2) Cellulitis of right foot: (3) Smoker: (4) Gas gangrene: (5) Gangrene of right foot: (6) Abscess of right foot: Plan Right foot diabetic ulcer, with cellulitis, with right foot gas gangrene Plan -Status post guillotine amputation, with plans on below-knee amputation 04/27/2023 -Dr. Dave consulted, -Broad-spectrum antibiotic therapy vancomycin, Zosyn -venous ultrasound for DVT negative -Pro-Shiv, CRP, ESR -Blood cultures -Low-dose sliding scale for type 2 diabetes mellitus -Morphine for pain control -Full code -Lovenox for DVT prophylaxis Spoke to patient, Attestations Medical Necessity Statement*: Patient requires hospitalization for right foot diabetic ulcer with cellulitis with gas going status post guillotine amputation with plans on below-knee amputation requiring IV antibiotics Diagnoses Diabetic ulcer of right foot E11.621; L97.519 Cellulitis of right foot L03.115 Smoker F17.200 Gas gangrene A48.0 Gangrene of right foot I96 Abscess of right foot L02.611
[2023-04-25] MEDS: enoxaparin 40 mg/0.4 mL Syringe SUBCUT (17:15)
[2023-04-25] MEDS: pantoprazole 40 mg SDV IVP (17:37)
[2023-04-25 20:26] LABS: Vancomycin Trough 25.5 ug/mL (10-15)
[2023-04-25 20:39] LABS: Glucose Point of Care 268 mg/dL (70-110)
[2023-04-26] VITALS (11 sets, daily range): BP systolic 123–132; BP diastolic 73–80; PULSE 76–82; RESP 15–18; TEMP 36.2–36.9; O2SAT 94–98
--- NOTE | 2023-04-26 01:03 | PC.PHAR ---
Pharmacokinetic dosing service Date: 04/26/23 Time: 102 Patient: Sebas Junior Floor: 254-2 Weight: 103.873 Kilograms Vancomycin single level analysis: Current dose being given: 1750 mg Current dosing interval: 8 hrs Current infusion time (hrs): 1.5 Single level Trough Data: Trough level obtained: 25.5 mcg/ml Timing of trough - # of hrs before next dose: 1 Hrs Desired peak: 40 mcg/ml Desired trough: 15 mcg/ml Diagnosis: Relevant medical/social history: Cultures and sensitivities: Other labs: Estimated PK Parameters: New rate constant (cathy): 0.079 hr-1 Half-life: 8.77 Hours Vd from levels: 93.49 Liters (0.7 L/kg) CLvanco=?? 7.386 L/hr Estimated New Dose and Interval Recommended dose: 2643.0 mg Recommended interval: 13.9 Hrs Patient response: Patient is responding to treatment [yes/no] wbc decreasing, S/SX reduced [yes/no] Renal function is stable/unstable Recommendations: Give Vancomycin 1750 mg q 12 hrs. Infuse over 1.5 hrs Expected Cpeak: 28.8 mcg/mL Expected Ctrough: 12.6 mcg/mL AUC 0-24 /RENO Data: RENO 0.5 mcg/mL:?? AUC/RENO:? 947.7 RENO 1.0 mcg/mL:?? AUC/RENO:? 473.9 Recommended labs and intervals: Measure Bun and Scr 3 times/week. Renal dosing of other antibiotics (review renal dosing of other medications and list guidelines here): Thank you for the consult, will continue to follow. Signature: [facility]
[2023-04-26] MEDS: vancomycin 1,750 MG/350 ML PIGGYBACK 233.33 MG IV (03:21)
[2023-04-26] MEDS: oxyCODONE-APAP 10-325 mg Tablet 1 TAB PO ×4 (03:21→22:36)
[2023-04-26 05:26] LABS: Eosinophils # 0.1 10^3/uL (0.0-0.8); Eosinophils % 0.2 %; Lymphocytes % 8.3 %; Mean Corpuscular HGB Conc 33.3 g/dL (30.0-36.0); Mean Corpuscular Hemoglobin 29.5 pg (28.0-34.0); Mean Corpuscular Volume 88.4 fl (80-94); Mean Platelet Volume 9.7 fL (7.4-10.4); Monocytes # 2.1 10^3/uL (0.2-0.9); Monocytes % 8.4 %; Neutrophils % 69.4 %; Nucleated Red Blood Cells % 0 %; Platelet Count 425 10^3/cmm (130-400); Red Blood Count 4.41 10^6/uL (4.1-5.3); Red Cell Distribution Width 13.2 % (12.1-15.1); White Blood Count 24.4 10^3/uL (4.0-10.0)
[2023-04-26 05:42] LABS: C Reactive Protein 132.9 mg/L (0.0-4.9); Magnesium 2.1 mg/dL (1.7-2.3)
[2023-04-26 05:43] LABS: Blood Urea Nitrogen 29 mg/dL (8-23); Calcium 8.3 mg/dL (8.5-10.5); Carbon Dioxide 15 mmol/L (22-29); Chloride 106 mmol/L (98-107); Glomerular Filtration Rate 136.1 mL/min (90-130); Glucose 199 mg/dL (65-115); Osmolality Calculated 293 mOsm/kg (285-295); Sodium 136 mmol/L (136-145)
[2023-04-26 05:49] LABS: Procalcitonin 0.41 ng/mL (0-0.5)
[2023-04-26 06:21] LABS: Slide Review Slide Review Perform
[2023-04-26] MEDS: piperacillin-tazobactam 3.375 GM in sodium chloride 0.9% (plus) 50 ML IV ×3 (06:25→22:37)
[2023-04-26 06:34] LABS: Glucose Point of Care 209 mg/dL (70-110)
[2023-04-26] MEDS: gabapentin 300 mg Capsule PO ×2 (07:58→17:36)
[2023-04-26] MEDS: insulin lispro 100 unit/1 mL SUBCUT ×3 (07:58→17:36)
[2023-04-26] MEDS: linezolid premix 600 MG/300 ML PREMIX 300 MG IV ×2 (10:04→19:41)
[2023-04-26] MEDS: sodium chloride 0.9% 1,000 ML 50 ML IV (10:04)
--- NOTE | 2023-04-26 11:49 | PC.SOCIAL ---
IMM update IMM updated with patient. Verbalized an understanding. Copy pg 2 provided. Initialled, dated, timed, and placed in chart.
[2023-04-26 12:08] LABS: Glucose Point of Care 360 mg/dL (70-110)
--- NOTE | 2023-04-26 15:09 | PM.PN ---
Subjective Subjective: Patient was seen this morning, is at bedside, denies any fevers, no chills, does complain of pain at surgical site, Vitals/I&O/Wt Last Vital Signs Temp 97.8 F 04/26/23 11:10 Pulse 79 04/26/23 11:10 Resp 18 04/26/23 11:10 BP 132/78 04/26/23 11:10 Pulse Ox 98 04/26/23 11:10 O2 Del Method Room Air 04/26/23 11:10 O2 Flow Rate 6 04/26/23 08:00 04/26/23 04/26/23 04/26/23 06:59 14:59 22:59 Intake Total 400 / 4358.75 1790 / 1790 Output Total 1100 / 3200 850 / 850 Balance -700 / 1158.75 940 / 940 Physical Exam Const: COMMON NORMALS: no acute distress and patient oriented x3 Resp: COMMON NORMALS: normal respiratory effort, No retractions, No use of accessory muscles and clear to auscultation bilaterally AUSCULTATION: clear to auscultation bilaterally Cardio: COMMON NORMALS: regular rate, regular rhythm, S1 normal heart sound present and S2 normal heart sound present RATE: regular rate RHYTHM: regular rhythm HEART SOUNDS: S1 normal heart sound present and S2 normal heart sound present GI: COMMON NORMALS: Normal to inspection, nondistended, normoactive bowel sounds present and non-tender Extremity: COMMON NORMALS: no pedal edema NARRATIVE EXTREMITY EXAM: Right lower extremity wrapped and bandaged Neuro: COMMON NORMALS: patient oriented x3 Psych: COMMON NORMALS: mental status grossly normal Data 04/26/23 04:50 04/26/23 04:50 Micro: Microbiology 04/23/23 18:25 Gram Stain - Final Toe - Right Wound Culture - Preliminary Gram Negative Rods A&P Assessment and plan (1) Diabetic ulcer of right foot: (2) Cellulitis of right foot: (3) Smoker: (4) Gas gangrene: (5) Gangrene of right foot: (6) Abscess of right foot: Plan Right foot diabetic ulcer, with cellulitis, with right foot gas gangrene Plan -Status post guillotine amputation, n.p.o. at midnight tonight with plans on below-knee amputation 04/27/2023 -Dr. Dave consulted, -Ibrahim trough elevated 25, monitor creatinine start IV fluids at 50 cc, stop vancomycin switch to Zyvox -Broad-spectrum antibiotic therapy Zosyn -venous ultrasound for DVT negative -Monitor inflammatory markers -Blood cultures so far no growth -Follow wound cultures -Low-dose sliding scale for type 2 diabetes mellitus -Morphine for pain control -Full code -Lovenox for DVT prophylaxis Spoke to patient, spoke to at bedside, Attestations Medical Necessity Statement*: Patient requires hospitalization for right foot diabetic ulcer with cellulitis with gangrene status post guillotine procedure with plans on below-knee amputation tomorrow, continue IV antibiotic therapy, pain control Diagnoses Diabetic ulcer of right foot E11.621; L97.519 Cellulitis of right foot L03.115 Smoker F17.200 Gas gangrene A48.0 Gangrene of right foot I96 Abscess of right foot L02.611
--- NOTE | 2023-04-26 15:40 | PM.PN ---
Subjective Subjective: Patient seen and examined. Pain is controlled. Bandemia resolved Vitals/I&O/Wt Last Vital Signs Temp 97.8 F 04/26/23 11:10 Pulse 79 04/26/23 11:10 Resp 18 04/26/23 11:10 BP 132/78 04/26/23 11:10 Pulse Ox 98 04/26/23 11:10 O2 Del Method Room Air 04/26/23 11:10 O2 Flow Rate 6 04/26/23 08:00 04/26/23 04/26/23 04/26/23 06:59 14:59 22:59 Intake Total 400 / 4358.75 1790 / 1790 Output Total 1100 / 3200 850 / 850 Balance -700 / 1158.75 940 / 940 Physical Exam Narrative: General: No acute distress, awake alert and oriented x3 Extremities: Right lower extremity less edematous with no visible cellulitis Data 04/26/23 04:50 04/26/23 04:50 Micro: Microbiology 04/23/23 18:25 Gram Stain - Final Toe - Right Wound Culture - Preliminary Gram Negative Rods A&P Assessment and plan (1) Gangrene of right foot: Plan S/P Right guillotine below-knee amputation Keep dressing on right lower extremity until revision Plan is to convert the guillotine below-knee amputation to a formal below-knee amputation on Thursday Medical management per primary Attestations Medical Necessity Statement*: per primary Coding Level of Care Code Acute Code for g Fwd Diagnoses Gangrene of right foot I96
[2023-04-26 16:35] LABS: Glucose Point of Care 277 mg/dL (70-110)
[2023-04-26] MEDS: pantoprazole 40 mg SDV IVP (17:26)
[2023-04-26] MEDS: enoxaparin 40 mg/0.4 mL Syringe SUBCUT (17:36)
[2023-04-26 21:38] LABS: Glucose Point of Care 340 mg/dL (70-110)
[2023-04-27] VITALS (14 sets, daily range): BP systolic 110–161; BP diastolic 68–86; PULSE 73–90; RESP 12–18; TEMP 36.1–36.8; O2SAT 94–98
[2023-04-27] MEDS: HYDROmorphone 1 mg/mL INJ 1 mL IVP ×2 (01:34→20:38)
[2023-04-27] MEDS: sodium chloride 0.9% 1,000 ML 50 ML IV (01:35)
[2023-04-27] MEDS: oxyCODONE-APAP 10-325 mg Tablet 1 TAB PO ×4 (03:37→22:25)
[2023-04-27 04:53] LABS: Hematocrit 40.9 % (42.0-52.0); Hemoglobin 13.7 g/dL (11.7-16.6); Mean Corpuscular HGB Conc 33.5 g/dL (30.0-36.0); Mean Corpuscular Hemoglobin 29.7 pg (28.0-34.0); Mean Corpuscular Volume 88.7 fl (80-94); Mean Platelet Volume 9.6 fL (7.4-10.4); Platelet Count 309 10^3/cmm (130-400); Red Blood Count 4.61 10^6/uL (4.1-5.3); Red Cell Distribution Width 13.3 % (12.1-15.1); White Blood Count 10.8 10^3/uL (4.0-10.0)
[2023-04-27 05:17] LABS: Blood Urea Nitrogen 23 mg/dL (8-23); Calcium 8.2 mg/dL (8.5-10.5); Carbon Dioxide 23 mmol/L (22-29); Chloride 106 mmol/L (98-107); Glomerular Filtration Rate 113.9 mL/min (90-130); Glucose 327 mg/dL (65-115); Osmolality Calculated 302 mOsm/kg (285-295); Sodium 138 mmol/L (136-145)
[2023-04-27 05:21] LABS: C Reactive Protein 59.3 mg/L (0.0-4.9); Magnesium 1.9 mg/dL (1.7-2.3); Procalcitonin 0.23 ng/mL (0-0.5)
[2023-04-27] MEDS: piperacillin-tazobactam 3.375 GM in sodium chloride 0.9% (plus) 50 ML IV ×3 (05:53→22:25)
[2023-04-27 06:07] LABS: Slide Review Slide Review Perform
[2023-04-27 06:09] LABS: Absolute Segmented Neutrophil 6.2 10/cmm (1.6-7.1); Band Neutrophils Absolute 0.2 10^3/cmm (0.0-1.2); Lymphocytes 21 %; Segmented Neutrophils 57 %; Total Cells Counted 100 (0-100)
[2023-04-27 06:10] LABS: Absolute Neutrophil 6.4 10^3/cmm (1.4-6.5); Eosinophils 0 %; Giant Platelets Trace; Lymphocytes Absolute 2.4 10^3/cmm (1.2-3.4); Monocytes Absolute 0.5 10^3/cmm (0.1-0.6); Platelet Estimate Normal (Normal)
--- NOTE | 2023-04-27 06:31 | PC.NURSE ---
Addendum entered by Kellie Sykes RN 04/27/23 06:33: 500 ml NS bolus given out of bag from NS maintenance fluid. Original Note: Dr. Ochoa notified of blood sugar of 519. Also notified that patient is NPO for surgery scheduled at 3 pm. Humalog 10 units SQ and 500 ml NS bolus ordered.
[2023-04-27 06:38] LABS: Glucose Point of Care 519 mg/dL (70-110)
[2023-04-27] MEDS: insulin lispro 100 unit/1 mL 10 UNIT SUBCUT (06:57)
[2023-04-27] MEDS: linezolid premix 600 MG/300 ML PREMIX 300 MG IV ×2 (09:37→20:37)
[2023-04-27 11:01] LABS: Glucose Point of Care 267 mg/dL (70-110)
[2023-04-27 13:49] LABS: Glucose Point of Care 226 mg/dL (70-110)
--- NOTE | 2023-04-27 13:52 | PM.PN ---
Subjective Subjective: Patient was seen this more he is n.p.o. midnight, for his amputation today, his blood sugars were in the 500s this morning, denies any polyuria, polydipsia, polyphasia, Vitals/I&O/Wt Last Vital Signs Temp 97.0 F L 04/27/23 13:47 Pulse 75 04/27/23 13:47 Resp 18 04/27/23 13:47 BP 150/86 04/27/23 13:47 Pulse Ox 96 04/27/23 13:47 O2 Del Method Room Air 04/27/23 13:47 O2 Flow Rate 6 04/26/23 08:00 04/26/23 04/27/23 04/27/23 22:59 06:59 14:59 Intake Total 1030 / 2820 1891.666 / 4711.666 1084.167 / 1084.167 Output Total 1300 / 2150 1950 / 4100 Balance -270 / 670 -58.334 / 886.027 3587.167 / 1084.167 Physical Exam Const: COMMON NORMALS: no acute distress and patient oriented x3 Resp: COMMON NORMALS: normal respiratory effort, No retractions, No use of accessory muscles and clear to auscultation bilaterally AUSCULTATION: clear to auscultation bilaterally Cardio: COMMON NORMALS: regular rate, regular rhythm, S1 normal heart sound present and S2 normal heart sound present RATE: regular rate RHYTHM: regular rhythm HEART SOUNDS: S1 normal heart sound present and S2 normal heart sound present GI: COMMON NORMALS: Normal to inspection, nondistended, normoactive bowel sounds present and non-tender Extremity: COMMON NORMALS: no pedal edema Neuro: COMMON NORMALS: patient oriented x3 Psych: COMMON NORMALS: mental status grossly normal Data 04/27/23 04:39 04/27/23 04:39 Micro: Microbiology 04/23/23 18:25 Gram Stain - Final Toe - Right Wound Culture - Preliminary Morganella morganii Coag positive Staphylococcus A&P Assessment and plan (1) Diabetic ulcer of right foot: (2) Cellulitis of right foot: (3) Smoker: (4) Gas gangrene: (5) Gangrene of right foot: (6) Abscess of right foot: Plan Right foot diabetic ulcer, with cellulitis, with right foot gas gangrene Plan -Status post guillotine amputation, n.p.o. at midnight tonight with plans on below-knee amputation 04/27/2023 -Dr. Dave consulted, -Currently on Zyvox -Broad-spectrum antibiotic therapy Zosyn -venous ultrasound for DVT negative -Monitor inflammatory markers -Blood cultures so far no growth -Low-dose sliding scale for type 2 diabetes mellitus, does have hyperglycemia, will start Lantus tonight -Morphine for pain control -Full code -Lovenox for DVT prophylaxis Spoke to patient Attestations Medical Necessity Statement*: Patient requires hospitalization for right foot diabetic ulcer with cellulitis with gangrene status post amputation now ongoing below-knee amputation Diagnoses Diabetic ulcer of right foot E11.621; L97.519 Cellulitis of right foot L03.115 Smoker F17.200 Gas gangrene A48.0 Gangrene of right foot I96 Abscess of right foot L02.611
--- NOTE | 2023-04-27 13:58 | P.ANESASSM_ITS ---
Pre-Anesthetic Assessment Height/Weight: Height 1.83 m Weight 103.873 kg Temp Pulse Resp BP Pulse Ox O2 Del Method O2 Flow Rate 97.0 F L 75 18 150/86 96 Room Air 6 04/27/23 13:47 04/27/23 13:47 04/27/23 13:47 04/27/23 13:47 04/27/23 13:47 04/27/23 13:47 04/26/23 08:00 Operation Date: 04/24/23 12:20 Proposed Procedures p Amputation Transmetatarsal(Right) - Dionisio Smyth DPM Operation Date: 04/24/23 13:00 Proposed Procedures p BKA (Below Knee Amputation)(Right) - Britton Dave DO Operation Date: 04/27/23 15:20 Proposed Procedures p Formal BKA(Right) - Britton Dave DO Familial anesthetic complications: none Was Beta Cherrie taken within 24 hours: N/A Was Clonidine taken within 24 hours: N/A Last intake: Intake Last Liquid Date 04/26/23 Last Liquid Time 23:00 Last Solid Date 04/26/23 Last Solid Time 23:00 Social Tobacco and No alcohol Exam alert, oriented x 3, clear to auscultation bilaterally and regular rate & rhythm Airway Submandibular: within normal limits Cervical ROM: within normal limits Mallampati: Class II Dentition: chipped and false (upper) Pulmonary Chronic Obstructive Pulmonary Disease Metabolic Diabetes Mellitus and Morbid Obesity Neuropsych Anxiety and Neuropathy Anesthetic Plan ASA status: 3 Anesthesia: Choice (GA/LMA v SAB) Medications/Allergies Home Medications Medication Instructions Recorded Confirmed Last Taken Type cephalexin 500 mg capsule 500 mg PO Q8H 04/24/23 04/24/23 Unknown History empagliflozin 25 mg tablet 25 mg PO DAILY 04/24/23 04/24/23 Unknown History (Jardiance) mupirocin 2 % topical ointment 1 applic topical BID 04/24/23 04/24/23 Unknown History sulfamethoxazole 800 1 tab PO BID 04/24/23 04/24/23 Unknown History mg-trimethoprim 160 mg tablet tramadol 50 mg tablet 50 mg PO Q6H PRN Pain 04/24/23 04/24/23 Unknown History Allergies Allergy/AdvReac Type Severity Reaction Status Date / Time No Known Drug Allergies Allergy Unknown Unknown Verified 04/23/23 15:43 Current Medications Generic Name Dose Route Start Last Admin Trade Name Freq PRN Reason Stop Dose Admin Acetaminophen 650 mg 04/23/23 17:23 04/24/23 22:38 Acetaminophen 325 Mg Tablet PO 650 mg Q6H PRN Administration Mild/Mod Pain Or Temp >/= 101 Enoxaparin Sodium 40 mg 04/23/23 17:30 04/26/23 17:36 Enoxaparin 40 Mg/0.4 Ml Syringe SUBCUT 40 mg Q24H MILI Administration Gabapentin 300 mg 04/23/23 18:00 04/27/23 09:38 Gabapentin 300 Mg Capsule PO Not Given BID MILI Hydromorphone HCl 1 mg 04/24/23 16:31 04/27/23 01:34 Hydromorphone 1 Mg/Ml Inj 1 Ml IVP 1 mg Q2H PRN Administration PAIN Piperacillin Sod/Tazobactam 50 mls @ 12.5 mls/hr 04/23/23 22:00 04/27/23 12:43 Sod 3.375 gm/ Sodium Chloride IV Infused Q8H MILI Infusion Protocol Sodium Chloride 1,000 mls @ 50 mls/hr 04/26/23 09:00 04/27/23 12:44 Sodium Chloride 0.9% IV Infused .Q20H MILI Infusion Linezolid 600 mg in 300 mls @ 300 mls/hr 04/26/23 09:00 04/27/23 12:43 Zyvox Premix IV Infused Q12H MILI Infusion Protocol Insulin Human Lispro 0 unit 04/23/23 18:00 04/27/23 06:31 Insulin Lispro 100 Unit/1 Ml SUBCUT Not Given [facility]ID[facility] Protocol Oxycodone/Acetaminophen 1 tab 04/24/23 16:31 04/27/23 10:39 Oxycodone-Apap 10-325 Mg Tablet PO 1 tab Q4H PRN Administration MODERATE PAIN Pantoprazole Sodium 40 mg 04/23/23 17:30 04/26/23 17:26 Pantoprazole 40 Mg Sdv IVP 40 mg Q24H MILI Administration PFSH Anesthesia Medical History History of anxiety History of diabetic neuropathy History of type 2 diabetes mellitus Surgical History History of kidney surgery Family History Mother CAD (coronary artery disease) Father Lung disease Social History Smoking and tobacco status: current every day smoker Alcohol intake: current Alcohol intake frequency: holidays/special occasions only Substance/Drug Use: never Data Anesthesia 04/27/23 04:39 04/27/23 04:39 Short CBC 04/26/23 04/27/23 Range/Units 04:50 04:39 WBC 24.4 H 10.8 H (4.0-10.0) 10^3/uL Hgb 13.0 13.7 (11.7-16.6) g/dL Hct 39.0 L 40.9 L (42.0-52.0) % MCV 88.4 88.7 (80-94) fl Plt Count 425 H 309 (130-400) 10^3/cmm Neut % (Auto) 69.4 % Neut # (Auto) 16.90 H (1.8-7.7) 10^3/uL BMP 04/26/23 04/27/23 04:50 04:39 Sodium 136 138 Potassium 4.0 4.0 Chloride 106 106 Carbon Dioxide 15 L 23 BUN 29 H 23 Creatinine 0.6 L 0.7 Glucose 199 H 327 H Calcium 8.3 L 8.2 L Coags 04/26/23 04/27/23 04:50 04:39 C-Reactive Protein 132.9 H 59.3 H Microbiology 04/23/23 18:25 Gram Stain - Final Toe - Right Wound Culture - Preliminary Morganella morganii Coag positive Staphylococcus Cardiac Studies: No Data to Display
[2023-04-27] MEDS: sodium chloride 0.9% 1,000 ML 30 ML IV (14:08)
--- NOTE | 2023-04-27 15:30 | SUR.OPER ---
Right upper thigh tourniquet applied by Ruy Sinclair RN, webril padding used as well. Tourniquet was inflated at a pressure of 250 at 1507, tourniquet deflated at 1518.
--- NOTE | 2023-04-27 16:17 | PM.OP ---
Operative Report Date of procedure: April 27, 2023 Pre-op diagnosis: Gas gangrene of right foot and ankle Post-op diagnosis: same Procedure done: Right below-knee amputation Implants: None Specimens removed/disposition: Right leg Surgeon: Dr. Britton Dave DO Anesthesia: General Estimated blood loss (mL): 50 Complications: None apparent Procedure: Patient is well in operative room placed on the OR table in supine position. A spinal was already performed by anesthesia. The right lower extremity was inspected prepped and draped in usual sterile fashion. A time was performed. All present were in agreement. The below-knee amputation was marked appropriately with a 1/3 x 1/3 circumference posterior flap. Tourniquet was then turned on. 10 blade scalpel was then used to dissect through skin subcutaneous tissue and muscle, leaving a posterior flap. The tibia was then transected using a Gigli saw 2 inches proximal to the skin. The fibula was then transected 3 inches proximal to the skin in a similar fashion. Specimen was passed off. Large vessels were clamped and ligated with 0 silk. The tourniquet was then let down. Tourniquet time was 11 minutes. Any other bleeding was controlled with electrocautery and suture ligation. The posterior flap was then brought up over the bone and sewn into place at the fascia with 0 Vicryl suture in an interrupted fashion. Skin was then closed with 2-0 nylon in a vertical mattress interrupted fashion. [place] were applied. Sterile bandages were applied. Patient tolerated procedure well.
[2023-04-27 16:41] LABS: Glucose Point of Care 216 mg/dL (70-110)
--- NOTE | 2023-04-27 16:56 | ANE.PACU2 ---
Inpatient post-anesthesia follow up: Airway intact: Yes Vital signs: Temperature 97.2 F Pulse Rate 76 Respiratory Rate 16 Blood Pressure 131/85 Pulse Oximetry 94 Oxygen Delivery Me thod [ Room Air Current Rate & Del konstantin] Oxygen Delivery Me thod Room Air Oxygen Flow Rate 6 Fraction of Inspir ed Oxygen Hydration adequate: Yes Nausea and vomiting: No Pain level: 1 Mental status: Baseline
[2023-04-27] MEDS: insulin lispro 100 unit/1 mL SUBCUT (17:29)
[2023-04-27] MEDS: gabapentin 300 mg Capsule PO (17:56)
[2023-04-27] MEDS: enoxaparin 40 mg/0.4 mL Syringe SUBCUT (17:57)
[2023-04-27 20:32] LABS: Glucose Point of Care 368 mg/dL (70-110)
[2023-04-27] MEDS: pantoprazole 40 mg SDV IVP (20:37)
[2023-04-28] VITALS (7 sets, daily range): BP systolic 151–160; BP diastolic 72–89; PULSE 80–86; RESP 18–22; TEMP 36.2–37.3; O2SAT 91–97
[2023-04-28] MEDS: sodium chloride 0.9% 1,000 ML 50 ML IV (00:34)
[2023-04-28] MEDS: oxyCODONE-APAP 10-325 mg Tablet 1 TAB PO ×3 (02:25→13:20)
[2023-04-28 05:18] LABS: Hematocrit 39.2 % (42.0-52.0); Mean Corpuscular HGB Conc 33.2 g/dL (30.0-36.0); Mean Corpuscular Hemoglobin 29.4 pg (28.0-34.0); Mean Corpuscular Volume 88.7 fl (80-94); Mean Platelet Volume 9.8 fL (7.4-10.4); Platelet Count 349 10^3/cmm (130-400); Red Blood Count 4.42 10^6/uL (4.1-5.3); Red Cell Distribution Width 13.1 % (12.1-15.1); White Blood Count 15.1 10^3/uL (4.0-10.0)
[2023-04-28 05:43] LABS: Slide Review Slide Review Perform
[2023-04-28 05:44] LABS: Absolute Segmented Neutrophil 10.7 10/cmm (1.6-7.1); Eosinophils 0 %; Lymphocytes 13 %; Monocytes Absolute 1.4 10^3/cmm (0.1-0.6); Platelet Estimate Normal (Normal); Segmented Neutrophils 71 %; Smudge Cells Trace; Total Cells Counted 100 (0-100)
[2023-04-28 05:45] LABS: Giant Platelets Trace
[2023-04-28 05:48] LABS: Blood Urea Nitrogen 12 mg/dL (8-23); Calcium 8.2 mg/dL (8.5-10.5); Carbon Dioxide 23 mmol/L (22-29); Glomerular Filtration Rate 167.9 mL/min (90-130); Glucose 224 mg/dL (65-115)
[2023-04-28 05:50] LABS: Magnesium 1.9 mg/dL (1.7-2.3); Phosphorus 2.6 mg/dL (2.5-4.5)
[2023-04-28 06:04] LABS: Anion Gap 17.9 (5-19); Chloride 99 mmol/L (98-107); Osmolality Calculated 289 mOsm/kg (285-295); Potassium 3.9 mmol/L (3.5-5.1); Sodium 136 mmol/L (136-145)
[2023-04-28] MEDS: piperacillin-tazobactam 3.375 GM in sodium chloride 0.9% (plus) 50 ML IV (06:25)
[2023-04-28 06:49] LABS: Glucose Point of Care 257 mg/dL (70-110)
--- NOTE | 2023-04-28 08:15 | PC.NURSE ---
Patient is refusing his Telemetry as he is being discharged.
[2023-04-28] MEDS: gabapentin 300 mg Capsule PO (08:16)
[2023-04-28] MEDS: insulin lispro 100 unit/1 mL SUBCUT (08:17)
[2023-04-28] MEDS: amlodipine 10 mg Tablet PO (09:32)
[2023-04-28] MEDS: insulin glargine 100 units/1 mL 10 UNIT SUBCUT (09:40)
--- NOTE | 2023-04-28 10:25 | PC.SOCIAL ---
IMM Update pg 2 of IMM updated and reviewed w/ patient. Copy provided and Copy in chart dated and initialed.
--- NOTE | 2023-04-28 11:54 | P.DS_ITS ---
Discharge Providers Date of Admission: 04/23/23 16:37 Date of Discharge: April 28, 2023 Attending Provider at Admission: Artemio Joy MD Attending Provider at Discharge: Artemio Joy MD Primary Care Provider: Cora Bass APN Diagnoses at Discharge Discharge Diagnosis (1) Diabetic ulcer of right foot: Status: Acute (2) Cellulitis of right foot: Status: Acute (3) Smoker: Status: Acute (4) Gas gangrene: Status: Acute (5) Gangrene of right foot: Status: Acute (6) Abscess of right foot: Status: Acute Reason for Visit Reason for Visit: hospitalization Hospital Course Hospital Course This is a 63-year-old male, with a past medical history of type 2 diabetes mellitus, current smoker, who presents to [facility] as a transfer from wound care due to concerns for right foot cellulitis, swelling, erythema, with fevers, chills.? Patient tells me that about 48 hours ago he tripped in a pothole, and since then he has had right foot pain, swelling, he tells me that his first and second digits have a bluish hue to them, he is also been having fevers, chills, no nausea, vomiting, abdominal pain he went to wound care and they were worried about a deep tissue infection so they sent him over here to [facility] for further evaluation.? 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 Patient tolerated procedure well, remained afebrile, blood cultures so far negative. Will be discharged on pain control, home PT OT, wound care, follow-up with Dr. Dave. For his type 2 diabetes mellitus, A1c was 12.3, managed with glargine, and NovoLog during his hospitalization, will be discharged on glargine 5 units subcu every morning, with a low-dose sliding scale, discharged with metformin 1000 mg once daily, Jardiance, follow-up with primary care provider in 24 to 48 hours for recheck blood sugars. -Please inject glargine, 5 units, SQ every morning -Please monitor your blood sugars closely -Monitor your blood sugars 3 times daily as after meals -Please record your blood sugars, and a blood sugar log -For your NovoLog -Please inject blood sugar after meals based on sliding scale provided -Do not inject insulin if you do not eat as hypoglycemia kills -This is a NovoLog sliding scale -Insulin sliding ?fingerstick? Insulin ?141-180?0 units/sq 181-220?2 units/sq ?221-260?4 units/sq ?261-300 6 units/sq ?301-350?8 units/sq ?351-400 10 units/sq ?401-450?12 units/sq >450? 14units/sq -If your blood sugar is greater than 500 go to the emergency room -If your blood sugar is less than 60 or at anytime you feel lightheaded or dizzy or diaphoretic or have chest palpitations check your blood sugar, and eat a hard candy or drink orange juice and go immediately to the emergency room -Remember hypoglycemia kills, so if his blood sugar is less than 60 we have to increase it by taking in a sugary meal such as a hard candy or orange juice and go to the emergency room -If you have any questions please call us where here to help Physical Exam Const: COMMON NORMALS: no acute distress and patient oriented x3 Resp: COMMON NORMALS: normal respiratory effort, No retractions, No use of accessory muscles and clear to auscultation bilaterally AUSCULTATION: clear to auscultation bilaterally Cardio: COMMON NORMALS: regular rate, regular rhythm, S1 normal heart sound present and S2 normal heart sound present RATE: regular rate RHYTHM: regular rhythm HEART SOUNDS: S1 normal heart sound present and S2 normal heart sound present GI: COMMON NORMALS: Normal to inspection, nondistended, normoactive bowel sounds present and non-tender Extremity: COMMON NORMALS: no pedal edema Neuro: COMMON NORMALS: patient oriented x3 Psych: COMMON NORMALS: mental status grossly normal Discharge Data Studies Completed and Pending Completed Studies During Hospitalization Category Date Time Status CT foot RT w con [id number] Routine Cat Scan 04/23/23 17:19 Completed XR chest 1V portable [id number] Routine Exams 04/23/23 17:19 [place] [id number] Routine Ultrasound 04/23/23 17:32 Completed Pending at discharge Category Date Time Status Basic Metabolic Panel AM LABS Lab 04/29/23 04:00 Ordered Basic Metabolic Panel AM LABS Lab 04/30/23 04:00 Ordered Blood Culture Stat Lab 04/23/23 18:50 Results Complete Blood Count w/Auto AM LABS Lab 04/29/23 04:00 Ordered Complete Blood Count w/Auto AM LABS Lab 04/30/23 04:00 Ordered Magnesium AM LABS Lab 04/29/23 04:00 Ordered Magnesium AM LABS Lab 04/30/23 04:00 Ordered Phosphorus AM LABS Lab 04/29/23 04:00 Ordered Phosphorus AM LABS Lab 04/30/23 04:00 Ordered Wound Culture and Gram Stain Routine Lab 04/23/23 18:25 Results Pathology: Surgical [PTH] Routine Pth 04/24/23 15:56 Received Pathology: Surgical [PTH] Routine Pth 04/27/23 15:23 Received Radiology Impressions Chest X-Ray 04/23/23 17:19 IMPRESSION: Single-view chest is without acute cardiopulmonary abnormality. Foot CT 04/23/23 17:19 IMPRESSION: Extensive amount of air in the soft tissues indicative of gas gangrene. No fractures are noted. Laboratory Results WBC 15.1 10^3/uL (4.0-10.0) H 04/28/23 04:49 RBC 4.42 10^6/uL (4.1-5.3) 04/28/23 04:49 Hgb 13.0 g/dL (11.7-16.6) 04/28/23 04:49 Hct 39.2 % (42.0-52.0) L 04/28/23 04:49 MCV 88.7 fl (80-94) 04/28/23 04:49 MCH 29.4 pg (28.0-34.0) 04/28/23 04:49 MCHC 33.2 g/dL (30.0-36.0) 04/28/23 04:49 RDW 13.1 % (12.1-15.1) 04/28/23 04:49 Plt Count 349 10^3/cmm (130-400) 04/28/23 04:49 MPV 9.8 fL (7.4-10.4) 04/28/23 04:49 Neut % (Auto) 69.4 % 04/26/23 04:50 Lymph % (Auto) Not Reportable 04/28/23 04:49 [place] % (Auto) Not Reportable 04/28/23 04:49 Eos % (Auto) 0.2 % 04/26/23 04:50 Baso % (Auto) 0.0 % 04/26/23 04:50 Neut # (Auto) 16.90 10^3/uL (1.8-7.7) H 04/26/23 04:50 Lymph # (Auto) Not Reportable 04/28/23 04:49 [place] # (Auto) Not Reportable 04/28/23 04:49 Eos # (Auto) 0.1 10^3/uL (0.0-0.8) 04/26/23 04:50 Baso # (Auto) 0.0 10^3/uL (0.0-0.1) 04/26/23 04:50 Nucleated RBC % (auto) 0 % 04/26/23 04:50 Total Counted 100 (0-100) 04/28/23 04:49 Atypical Lymphs % Not Reportable 04/28/23 04:49 Absolute Neutrophils 6.4 10^3/cmm (1.4-6.5) 04/27/23 04:39 Segmented Neutrophils 71 % 04/28/23 04:49 Abs Segm Neuts (Man) 10.7 10/cmm (1.6-7.1) H 04/28/23 04:49 Band Neutrophils Not Reportable 04/28/23 04:49 Abs Band Neuts (Man) 0.2 10^3/cmm (0.0-1.2) 04/27/23 04:39 Absolute Lymphocytes 2.4 10^3/cmm (1.2-3.4) 04/27/23 04:39 Lymphocytes (Manual) 13 % 04/28/23 04:49 Monocytes (Manual) 9.0 % 04/28/23 04:49 Absolute Monocytes 1.4 10^3/cmm (0.1-0.6) H 04/28/23 04:49 Eosinophils (Manual) 0 % 04/28/23 04:49 Absolute Eosinophils 0.0 10^3/cmm (0.0-0.7) 04/28/23 04:49 Basophils (Manual) 0.0 % 04/28/23 04:49 Absolute Basophils 0.0 10^3/cmm (0.0-0.2) 04/28/23 04:49 Metamyelocytes 1.0 % 04/27/23 04:39 Myelocytes 4.0 % 04/28/23 04:49 Promyelocytes 3.0 % 04/28/23 04:49 Nucleated RBCs 0.0 /100WBC (0-1) 04/27/23 04:39 Nucleated RBCs # 0.0 /100WBC 04/26/23 04:50 Smudge Cells Trace 04/28/23 04:49 Toxic Granulation 2+ H 04/23/23 18:50 Dohle Bodies 1+ H 04/23/23 18:50 Platelet Estimate Normal (Normal) 04/28/23 04:49 Giant Platelets Trace 04/28/23 04:49 ESR 36 mm/hr (0-10) H 04/23/23 18:50 Sodium 136 mmol/L (136-145) 04/28/23 04:49 Potassium 3.9 mmol/L (3.5-5.1) 04/28/23 04:49 Chloride 99 mmol/L (98-107) 04/28/23 04:49 Carbon Dioxide 23 mmol/L (22-29) 04/28/23 04:49 Anion Gap 17.9 (5-19) 04/28/23 04:49 BUN 12 mg/dL (8-23) 04/28/23 04:49 Creatinine 0.5 mg/dL (0.7-1.2) L 04/28/23 04:49 GFR Calculation 167.9 mL/min (90-130) H 04/28/23 04:49 Glucose 224 mg/dL (65-115) H 04/28/23 04:49 POC Glucose 257 mg/dL (70-110) H 04/28/23 06:41 Estimat Average Glucose 306 04/23/23 18:50 Hemoglobin A1c 12.3 % (4.0-6.0) H 04/23/23 18:50 Calculated Osmolality 289 mOsm/kg (285-295) 04/28/23 04:49 Lactic Acid 1.8 mmol/L (0.5-2.2) 04/23/23 18:50 Lactate 1.0 mmol/L (0.5-2.2) 04/24/23 00:50 Calcium 8.2 mg/dL (8.5-10.5) L 04/28/23 04:49 Phosphorus 2.6 mg/dL (2.5-4.5) 04/28/23 04:49 Magnesium 1.9 mg/dL (1.7-2.3) 04/28/23 04:49 Total Bilirubin 0.3 mg/dL (0.15-1.2) 04/24/23 00:50 AST 13 U/L (0-40) 04/24/23 00:50 ALT 14 U/L (0-41) 04/24/23 00:50 Alkaline Phosphatase 116 U/L (40-130) 04/24/23 00:50 Troponin T Baseline 7 ng/L (0-15) 04/23/23 18:50 Troponin T 120 Minute 8.65 ng/L (0-15) 04/23/23 20:56 Delta Troponin T 1.65 ABS# (0-10) 04/23/23 20:56 Troponin T Hi Sens 6Hr 17.46 ng/L (0-15) H 04/24/23 00:50 Troponin T Hi Sens 6Hr Delta 10.46 ng/L (0-12) 04/24/23 00:50 C-Reactive Protein 59.3 mg/L (0.0-4.9) H 04/27/23 04:39 NT-Pro-B Natriuret Pep 276 pg/mL (0-125) H 04/23/23 18:50 Total Protein 6.5 g/dL (6.6-8.7) L 04/24/23 00:50 Albumin 2.4 g/dL (3.5-5.2) L 04/24/23 00:50 Globulin 4.1 g/dL (1.3-4.6) 04/24/23 00:50 Triglycerides 126 mg/dL (0-150) 04/23/23 18:50 Cholesterol 91 mg/dL (0-200) 04/23/23 18:50 LDL Cholesterol, Calc 48 mg/dL (50-129) L 04/23/23 18:50 HDL Cholesterol 18 mg/dL (60-100) L 04/23/23 18:50 LDL/HDL Ratio 2.67 RATIO (0.00-3.22) 04/23/23 18:50 Cholesterol/HDL Ratio 5.06 mg/dL (1.0-5.00) H 04/23/23 18:50 Lipase 34 U/L (13-60) 04/23/23 18:50 Procalcitonin 0.23 ng/mL (0-0.5) 04/27/23 04:39 TSH 1.64 uIU/mL (0.27-4.20) 04/23/23 18:50 Urine Color Yellow (Yellow) 04/23/23 18:42 Urine Appearance Clear (CLEAR) 04/23/23 18:42 Urine pH 5 (5-7) 04/23/23 18:42 Ur Specific [place] 1.010 (1.005-1.030) 04/23/23 18:42 Urine Protein Neg (Negative) 04/23/23 18:42 Urine Glucose (UA) 4+ (Normal) H 04/23/23 18:42 Urine Ketones 2+ (Negative) H 04/23/23 18:42 Urine Blood 2+ (Negative) H 04/23/23 18:42 Urine Nitrate Negative (Negative) 04/23/23 18:42 Urine Bilirubin Neg (Negative) 04/23/23 18:42 Urine Urobilinogen 1 mg/dL (Negative) H 04/23/23 18:42 Ur Leukocyte Esterase Negative (Negative) 04/23/23 18:42 Urine RBC 0-4 /hpf (0-2) H 04/23/23 18:42 Urine WBC 0-4 /hpf (0-5) H 04/23/23 18:42 Ur Squamous Epith Cells 0-4 /hpf (0-5) H 04/23/23 18:42 Amorphous Sediment Not Reportable 04/23/23 18:42 Urine Bacteria Trace /hpf (NONE) 04/23/23 18:42 Vancomycin Trough 25.5 ug/mL (10-15) H* 04/25/23 19:54 Vitals Last Vital Signs Temp 97.1 F L 04/28/23 11:42 Pulse 84 04/28/23 11:42 Resp 20 H 04/28/23 11:42 BP 151/79 04/28/23 11:42 Pulse Ox 97 04/28/23 11:42 O2 Del Method Room Air 04/28/23 11:42 O2 Flow Rate 0 04/28/23 08:00 Discharge Plan Discharge Patient Disposition: Home Health Service Condition: Stable Prescriptions: New amlodipine 10 mg Tablet 10 mg PO DAILY 30 Days Qty: 30 0RF insulin glargine [Basaglar KwikPen U-100 Insulin] 100 unit/mL (3 mL) insulin pen 5 unit SUBCUT QAM 30 Days Qty: 15 0RF gabapentin 300 mg Capsule 300 mg PO BID 30 Days Qty: 60 0RF insulin lispro [Humalog KwikPen Insulin] 100 unit/mL insulin pen See Rx Instructions .ROUTE .COMPLEX Qty: 15 0RF Rx Instructions: inject subcut, three times daily, after meals, based on sliding scale provided metformin 1,000 mg tablet extended release 24 hr 1,000 mg PO DAILY 30 Days Qty: 30 0RF Continued tramadol 50 mg tablet 50 mg PO Q6H PRN (Reason: Pain) mupirocin 2 % ointment 1 applic TOPICAL BID Jardiance 25 mg tablet 25 mg PO DAILY Discontinued sulfamethoxazole-trimethoprim 800-160 mg tablet 1 tab PO BID cephalexin 500 mg capsule 500 mg PO Q8H Discharge Orders: Discharge Order (Routine); Ordered 04/28/23 Ordered By: Artemio Joy Other Ambulatory Orders: DME: Wheelchair (Order) Location: None Selected Ordered By: Artemio Joy Referrals: [facility] [Other] Cora Bass APN [Primary Care Provider] - 05/05/23 10:00 am Britton Dave DO [Physician] - 2 weeks Dionisio Smyth DPM [Physician] - 1 month (left foot, ingrown toenail, funal infection ,dm) Discharge Diet: Cardiac Discharge Activity: Resume usual activity Patient Instructions: Opioid Safety Activity Restrictions/Additional Instructions: -please keep off amputation site -Please inject glargine, 5 units, SQ every morning -Please monitor your blood sugars closely -Monitor your blood sugars 3 times daily as after meals -Please record your blood sugars, and a blood sugar log -For your NovoLog -Please inject blood sugar after meals based on sliding scale provided -Do not inject insulin if you do not eat as hypoglycemia kills -This is a NovoLog sliding scale -Insulin sliding ?fingerstick? Insulin ?141-180?0 units/sq 181-220?2 units/sq ?221-260?4 units/sq ?261-300 6 units/sq ?301-350?8 units/sq ?351-400 10 units/sq ?401-450?12 units/sq >450? 14units/sq -If your blood sugar is greater than 500 go to the emergency room -If your blood sugar is less than 60 or at anytime you feel lightheaded or dizzy or diaphoretic or have chest palpitations check your blood sugar, and eat a hard candy or drink orange juice and go immediately to the emergency room -Remember hypoglycemia kills, so if his blood sugar is less than 60 we have to increase it by taking in a sugary meal such as a hard candy or orange juice and go to the emergency room -If you have any questions please call us where here to help Discharge Attestations Time Spent in Discharge Care*: greater than 30 min Time Spent in Smoking Cessation: 3 to 10 minutes Quality Metrics Clinical Quality Measures [ No reported AMI, CVA or VTE this stay] Coding Level of Care Code 14444 Total time (in minutes) for Discharge: 50 Diagnoses Diabetic ulcer of right foot E11.621; L97.519 Cellulitis of right foot L03.115 Smoker F17.200 Gas gangrene A48.0 Gangrene of right foot I96 Abscess of right foot L02.611
--- NOTE | 2023-04-28 13:53 | PC.NURSE ---
Patient is A&Ox3. Respirations even and non-labored on room air. Reviewed patient discharge with patient and family. Diabetic education completed. Insulin discussed as well as how to check his blood sugar. No questions voiced. Patient and family verbalized understanding. Patient assisted into wheel chair and pushed to private car.
== END 2023-04-28 13:57 | disposition home health service (06) | DRG 239 ==
PROVIDERS: Surgery; Admitting Provider Family Medicine; PCP Nurse Practitioner Family; Visit Provider Family Medicine
PROC: 0Y6M0Z0 Detachment at Right Foot, Complete, Open Approach (ICD-10-PCS; CPT 27880; principal; 2023-04-24 13:00)
PROC: 0Y6H0Z1 Detachment at Right Lower Leg, High, Open Approach (ICD-10-PCS; CPT 27880; principal; 2023-04-27 15:00)
DX: E11.52 Type 2 diabetes mellitus with diabetic peripheral angiopathy with gangrene (principal); A48.0 Gas gangrene; L97.518 Non-pressure chronic ulcer of other part of right foot with other specified severity; L03.115 Cellulitis of right lower limb; L02.611 Cutaneous abscess of right foot; E11.621 Type 2 diabetes mellitus with foot ulcer; F17.200 Nicotine dependence, unspecified, uncomplicated; E11.42 Type 2 diabetes mellitus with diabetic polyneuropathy; Z79.891 Long term (current) use of opiate analgesic; Z79.4 Long term (current) use of insulin; Z79.84 Long term (current) use of oral hypoglycemic drugs; F41.9 Anxiety disorder, unspecified
CPT/HCPCS: 11042; 36415; 36416; 71045; 73701; 80048; 80053; 80061; 80202; 81001; 82962; 83036; 83605; 83690; 83735; 83880; 84100; 84145; 84443; 84484; 85007; 85025; 85651; 86140; 87040; 87070; 87075; 87077; 87176; 87186; 87205; 87641; 88307; 88311; 93005; 93970; 94664; 96372; 97110; 97116; 97162; 97166; 97530; 99213; C9113; J1100; J1170; J1650; J1815; J2020; J2270; J2405; J2543; J2704; J2795; J3010; J3372; J7030; Q9967

== ENCOUNTER → 2023-05-12 12:45 | Outpatient (BNVA) | payer MEDICARE, SELFPAY | PROVIDERS: PCP Nurse Practitioner Family; Visit Provider Surgery | DX: Z89.511 Acquired absence of right leg below knee (principal) | CPT/HCPCS: 99024 ==